=== PATIENT | female | born 1930 | race Caucasian/White ===

== ENCOUNTER 2016-11-29 03:57 | Inpatient (IN) | payer OTHER ==
[~2016-11-29] VITALS: Ht 160 cm; Wt 79.0 kg
[~2016-11-29 03:57] MED LIST: ASPI325T39 PO; CLC100X PO; CODEINE PO; LEVO75TA PO; MULT-188 PO; TYLENOL PO; TYLER650 PO; VITA10004 PO
[2016-11-29 05:12] LABS: BASO % 0.1 %; BASO ABS # 0.01 K/uL (0-0.2); COMPLETE YES; HEMATOCRIT 36.6 % (37-47); IG% 0.4 %; LYMPH % 4.8 %; LYMPH ABS # 0.58 K/uL (1.2-3.4); MEAN CELL VOLUME 97.3 fL (80-100); MEAN CORPUSCULAR HGB CONC 33.9 g/dl (32-36); MEAN PLATELET VOLUME 8.8 fL (7.4-10.4); MONO % 7.6 %; NEUT % 87.1 %; PLATELET COUNT 236 K/uL (130-400); RED BLOOD COUNT 3.76 M/uL (4.2-5.4); WHITE BLOOD COUNT 12.03 K/uL (4.8-10.8)
[2016-11-29 05:35] LABS: BUN/CREATININE RATIO 27.7 (10-20); CALCIUM 9.4 mg/dl (8.5-10.1); CREATININE 1.1 mg/dl (0.60-1.20); MAGNESIUM 2.4 mg/dl (1.8-2.4); POTASSIUM 3.9 mmol/L (3.5-5.1)
[2016-11-29 06:16] LABS: URINE APPEARANCE CLEAR (CLEAR); URINE BILIRUBIN NEG (NEG); URINE COLOR DK YELLOW; URINE NITRITE NEG (NEG); URINE SPECIFIC GRAVITY 1.026 (1.000-1.030); UROBILINOGEN NEG (NEG); ZZURINE CULT IF INDIC CATH YES
[2016-11-29 06:17] LABS: MANUAL MICROSCOPIC REQUIRED? NO; REVIEW REQ? YES
[2016-11-29] MEDS ORDERED: CEFTRIAXONE SOD INJ 1 GM ADDVIAL IV STA (06:37)
--- NOTE | 2016-11-29 07:45 | DIAGNOSTIC IMAGING REPORT ---
PELVIS 1 OR 2 VIEW ROUTINE CLINICAL HISTORY: Fall. COMPARISON STUDY: No previous studies for comparison. FINDINGS: Irregularity of the symphysis pubis is likely chronic. No acute fracture is identified within the pelvis or hips. This extensive vascular calcification. 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 IMPRESSION: 1. No acute fracture within the pelvis or hips. 2. Irregularity along the symphysis pubis. This is likely chronic. Electronically signed by: Xander Miles M.D. 11/29/2016 7:44 AM
--- NOTE | 2016-11-29 08:01 | DIAGNOSTIC IMAGING REPORT ---
LEFT KNEE 1 OR 2 VIEWS ROUTINE CLINICAL HISTORY: Bilateral knee pain s/p fall COMPARISON: Left knee radiographs August 28, 2014 FINDINGS: Alignment of the total left knee arthroplasty is anatomic. The hardware is intact. There is no fracture or joint effusion. There is extensive vascular calcification. IMPRESSION: Status post total left knee arthroplasty. No fracture. Hardware intact. Electronically signed by: Xander Milse M.D. 11/29/2016 7:59 AM
--- NOTE | 2016-11-29 08:02 | DIAGNOSTIC IMAGING REPORT ---
RIGHT KNEE 1 OR 2 VIEWS ROUTINE CLINICAL HISTORY: Bilateral knee pain following fall. COMPARISON: Right knee radiographs August 28, 2014. FINDINGS: Alignment of the total right knee arthroplasty is anatomic. The hardware is intact. There is no fracture or joint effusion. Several soft tissue calcifications and vascular calcification are noted. IMPRESSION: Status post total right knee arthroplasty. No fracture. No joint effusion. Electronically signed by: Xander Miles M.D. 11/29/2016 8:00 AM
--- NOTE | 2016-11-29 08:07 | DIAGNOSTIC IMAGING REPORT ---
CHEST ONE VIEW PORTABLE CLINICAL HISTORY: Fall. Weakness. COMPARISON STUDY: Chest radiograph January 27, 2015. FINDINGS: There is a possible anterior right shoulder dislocation. A large hiatal hernia is noted. Cardiomediastinal silhouette is stable. Apparent right lower lung opacity is unchanged and likely reflects normal vessels. There is no pneumothorax or pleural effusion. There is no lobar consolidation. IMPRESSION: 1. Possible anterior right shoulder dislocation. While this could be positional, a dislocation could appear similar. Right shoulder radiographs including a scapular Y view could be obtained as indicated. 2. Large hiatal hernia. Electronically signed by: Xander Miles M.D. 11/29/2016 8:05 AM
--- NOTE | 2016-11-29 08:08 | DIAGNOSTIC IMAGING REPORT ---
CT OF THE HEAD WITHOUT CONTRAST CLINICAL HISTORY: Fall. Weakness. COMPARISON STUDY: Head CT January 28, 2015. CT DOSE: 638.56 mGycm TECHNIQUE: Helical axial images of the head were obtained without IV contrast. Automated exposure control was utilized for the study. FINDINGS: No acute intracranial hemorrhage, midline shift or mass effect is present. Ventricular system is stable. The basilar cisterns are patent. There are no extra-axial collections. 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 Moderate small vessel disease is noted. There are no findings to suggest acute dural sinus thrombosis or acute territorial infarct. No calvarial fracture is identified. IMPRESSION: No acute intracranial findings. Electronically signed by: Xander Miles M.D. 11/29/2016 8:07 AM
[2016-11-29] MEDS ORDERED: ONDANSETRON INJ 2 MG/ML 2 ML VIAL IV PRN (08:15)
[2016-11-29] MEDS ORDERED: ACETAMINOPHEN 325 MG TAB PO PRN (08:15)
[2016-11-29] MEDS ORDERED: DOCUSATE SODIUM 100 MG CAP PO PRN (08:15)
--- NOTE | 2016-11-29 08:21 | EMERGENCY ROOM VISIT NOTE ---
History Report prepared by Gilbertoibami: Attila Funez Under the Supervision of: Dr. Pedro Schultz M.D. First contact with patient: 04:00 Chief Complaint: FALL Stated Complaint: FALL History of Present Illness The patient is an 86 year old female who presents to the Emergency Room with complaints of an acute fall that occurred within the past hour. The patient fell onto her knees when she went up to go to the bathroom. The patient denies knee pain or hip pain. She did not hit her head. The patient also denies any headaches or recent confusion. As per EMS, the patient is at baseline. The patient lives at home with her . The patient was not on the floor for an extended period of time after the fall. Source of History: patient, EMS Onset: past hour Position: other (global) Quality: other (fall) Timing: other (acute) Associated Symptoms: No headache Note: Denies knee pain or hip pain. Review of Systems See HPI for pertinent positives & negatives. A total of 10 systems reviewed and were otherwise negative. Past Medical & Surgical Medical Problems: (1) Localized, primary osteoarthritis of the lower leg Family History No pertinent family history Social History Smoking Status: Never Smoker Marital Status: Housing Status: lives with significant other Occupation Status: retired Current/Historical Medications Scheduled Acetaminophen (Tylenol Arthitis Ext Rel), 650 MG PO HS Aspirin (Aspirin Ec), 325 MG PO DAILY Levothyroxine Sodium (Synthroid), 75 MCG PO DAILY Multiple Vitamins W/ Minerals (Ocuvite), 1 TAB PO QAM Vitamin E (Vitamin E), 1,000 UNITS PO QAM Scheduled PRN Docusate Sodium (Colace), 200 MG PO HS PRN for Constipation Allergies Coded Allergies: No Known Allergies (Verified , 11/29/16) Physical Exam Vital Signs Date Time Temp Pulse Resp B/P Pulse Ox O2 Delivery O2 Flow Rate FiO2 11/29/16 07:11 68 15 111/76 96 11/29/16 06:00 76 20 118/69 97 Room Air 11/29/16 04:11 36.6 86 20 138/77 94 Room Air Physical Exam GENERAL: Patient is elderly appearing and in no acute distress. HEENT: No acute trauma, normocephalic atraumatic, mucous membranes moist, no nasal congestion, no scleral icterus. NECK: No stridor, no adenopathy, no meningismus, trachea is midline. LUNGS: No dyspnea. Clear to auscultation and equal bilaterally. No wheeze, no rhonchi. HEART: Regular rate and rhythm. No murmurs, rubs, gallops appreciated. ABDOMEN: Soft, nontender, bowel sounds positive, no masses appreciated, no peritonitis. BACK: No midline tenderness, no CVA tenderness EXTREMITIES: Normal motion all extremities other than right shoulder appears anteriorly dislocated (patient states this is chronic), no cyanosis, no edema. Bilateral knee contusions with mild tenderness to palpation. NEUROLOGIC: Slightly confused, alert and oriented, although there is some difficulty answering questions. Generalized weakness. SKIN: No rash, no jaundice, no diaphoresis. Significant amount of yeast throughout her lower pannus. Medical Decision & Procedures ER Provider Diagnostic Interpretation: X ray results and stated below per my interpretation. Other radiology results and stated below per my review and radiologist interpretation: Chest X-ray: Right mid lung mass, similar to previous chest X-ray. Bilateral Two View Knees: s/p knee replacement, no fracture or dislocation. Pelvis One View: Degenerative changes, no fracture no dislocation. CT Head: No evidence of acute infarct, hemorrhage, mass or edema. Chronic small vessel ischemic disease and senescent changes. Remote lacunar infarcts within the basal ganglia. Minimal mucosal thickening within the paranasal sinuses. No acute osseous abnormality. Radiologist: Hong Holliday MD. Laboratory Results 11/29/16 04:55 Red Blood Count 3.76, Mean Corpuscular Volume 97.3, Mean Corpuscular Hemoglobin 33.0, Mean Corpuscular Hemoglobin Concent 33.9, Mean Platelet Volume 8.8, Neutrophils (%) (Auto) 87.1, Lymphocytes (%) (Auto) 4.8, Monocytes (%) (Auto) 7.6, Eosinophils (%) (Auto) 0.0, Basophils (%) (Auto) 0.1, Neutrophils # (Auto) 10.47, Lymphocytes # (Auto) 0.58, Monocytes # (Auto) 0.92, Eosinophils # (Auto) 0.00, Basophils # (Auto) 0.01 11/29/16 04:55 Test 11/29/16 04:55 11/29/16 06:00 White Blood Count 12.03 K/uL (4.8-10.8) Red Blood Count 3.76 M/uL (4.2-5.4) Hemoglobin 12.4 g/dL (12.0-16.0) Hematocrit 36.6 % (37-47) Mean Corpuscular Volume 97.3 fL (80-100) Mean Corpuscular Hemoglobin 33.0 pg (25-34) Mean Corpuscular Hemoglobin Concent 33.9 g/dl (32-36) Platelet Count 236 K/uL (130-400) Mean Platelet Volume 8.8 fL (7.4-10.4) Neutrophils (%) (Auto) 87.1 % Lymphocytes (%) (Auto) 4.8 % Monocytes (%) (Auto) 7.6 % Eosinophils (%) (Auto) 0.0 % Basophils (%) (Auto) 0.1 % Neutrophils # (Auto) 10.47 K/uL (1.4-6.5) Lymphocytes # (Auto) 0.58 K/uL (1.2-3.4) Monocytes # (Auto) 0.92 K/uL (0.11-0.59) Eosinophils # (Auto) 0.00 K/uL (0-0.5) Basophils # (Auto) 0.01 K/uL (0-0.2) RDW Standard Deviation 48.9 fL (36.4-46.3) RDW Coefficient of Variation 13.8 % (11.5-14.5) Immature Granulocyte % (Auto) 0.4 % Immature Granulocyte # (Auto) 0.05 K/uL (0.00-0.02) Anion Gap 14.0 mmol/L (3-11) Est Creatinine Clear Calc Drug Dose 37.9 ml/min Estimated GFR () 53.4 Estimated GFR (Non- 46.1 BUN/Creatinine Ratio 27.7 (10-20) Calcium Level 9.4 mg/dl (8.5-10.1) Magnesium Level 2.4 mg/dl (1.8-2.4) Urine Color DK YELLOW Urine Appearance CLEAR (CLEAR) Urine pH 5.0 (4.5-7.5) Urine Specific [place] 1.026 (1.000-1.030) Urine Protein 1+ (NEG) Urine Glucose (UA) NEG (NEG) Urine Ketones TRACE (NEG) Urine Occult Blood 1+ (NEG) Urine Nitrite NEG (NEG) Urine Bilirubin NEG (NEG) Urine Urobilinogen NEG (NEG) Urine Leukocyte Esterase NEG (NEG) Urine WBC (Auto) 1-5 /hpf (0-5) Urine RBC (Auto) 0-4 /hpf (0-4) Urine Hyaline Casts (Auto) 1-5 /lpf (0-5) Urine Epithelial Cells (Auto) 10-20 /lpf (0-5) Urine Bacteria (Auto) 3+ (NEG) Laboratory results as reviewed by me. Medications Administered Medications (Trade) Dose Ordered Sig/Carleen Route Start Time Stop Time Status Last Admin Dose Admin Ceftriaxone Sodium (Rocephin Inj) 1 gm NOW STAT IV 11/29/16 06:37 11/29/16 06:38 DC 11/29/16 07:10 1 GM ED Course 0401: The patient was evaluated in room B5. A complete history and physical exam was performed. 0435: Spoke with the patient's daughter. She says the patient as been experiencing gradually worsening weakness. They will not take her home because they believe she is too weak. They would like for her to be admitted and eventually go to rehab. 0637: Rocephin 1 gm IV. 0640: The patient is okay with staying in the hospitalist. 0730: The patient will be evaluated by the [facility] Hospitalist Service. Medical Decision Differential: Sepsis, Infectious (UTI/Pneumonia/Meningitis/etc), Metabolic/ Electrolyte Abnormality, Cardiac, Hepatic, Endocrine, Toxicologic, Neurologic, amongst other pathologies entertained. 86 yr old female who lives at home with 90+ yr old . She has been having worsening weakness and after falling on ground while headed to bathroom is unable to get back up. Family arrived and made it clear that she can not come home due to this weakness. On work-up not much other than some trace bacteria in urine which given this is straight cath seems reasonable to treat with abx. Also with candidal infection of pannus as well. She does have evidence of right shoulder dislocation by exam and cxr but patient makes very clear this has been like this for 2-3 yrs and that it doesn't hurt her. While it's unclear if this is due to patient baseline confusion or if this actually has been ongoing for several years, will defer further work-up to hospitalist team and ortho consult as she is very poor candidate for sedation in ED as it is , especially given that she has no pain currently. Impression Primary Impression: Generalized weakness Additional Impressions: Ambulatory dysfunction, UTI (urinary tract infection) Scribe Attestation The scribe's documentation has been prepared under my direction and personally reviewed by me in its entirety. I confirm that the note above accurately reflects all work, treatment, procedures, and medical decision making performed by me. Departure Information Dispostion Being Evaluated By Hospitalist Referrals Ryan Chavira M.D. (PCP) Patient Instructions A Signature Page, My [facility]
[2016-11-29 08:30] VITALS: O2SAT 95; Ht 160 cm; Wt 79.0 kg
--- NOTE | 2016-11-29 08:34 | History and Physical ---
History & Physical Date & Time of Service: Nov 29, 2016 at 08:18 Chief Complaint: FALL Primary Care Physician: Ryan Chavira M.D. History of Present Illness Source: patient, hospital records, other (ed physician) This patient is a pleasant 86-year-old female that presented to the emergency department last night complaining of a fall and weakness. The patient got out of bed to use the restroom when she says that she "just fell." She denies any dizziness or lightheadedness. She denies any chest pain, pressure, shortness breath or heart palpitations. Patient doesn't recall tripping over anything. She landed on both of her knees. The right knee is bothering her more than the left. She has a history of bilateral knee replacements. She denies hitting her head. The patient has no other complaints. She reports eating and drinking normally over the last several days. She lives at home alone with her elderly . She currently does have family in the area. Her daughter brought her to the emergency department last night, and says that they were unable to take her home because she is so weak. The patient did reportedly have a similar episode and needed acute rehabilitation approximately 1 year ago. Past Medical/Surgical History Medical Problems: (1) Localized, primary osteoarthritis of the lower leg Status: Chronic Hypothyroidism Status post cholecystectomy, appendectomy, hysterectomy, bilateral knee replacements Family History No pertinent family history Unknown as the patient is fairly demented Social History Smoking Status: Never Smoker Alcohol Use: none Marital Status: Housing status: lives with significant other Occupational Status: retired Immunizations History of Influenza Vaccine: No History of Tetanus Vaccine?: Yes History of Pneumococcal: Yes History of Hepatitis B Vaccine: No Multi-Drug Resistant Organisms History of MDRO: No Allergies Coded Allergies: No Known Allergies (Verified , 11/29/16) Home Medications Scheduled Acetaminophen (Tylenol Arthitis Ext Rel), 650 MG PO HS Aspirin (Aspirin Ec), 325 MG PO DAILY Levothyroxine Sodium (Synthroid), 75 MCG PO DAILY Multiple Vitamins W/ Minerals (Ocuvite), 1 TAB PO QAM Vitamin E (Vitamin E), 1,000 UNITS PO QAM Scheduled PRN Docusate Sodium (Colace), 200 MG PO HS PRN for Constipation Review of Systems 10 system review performed and negative unless noted in HPI or below Physical Exam Vital Signs Date Time Temp Pulse Resp B/P Pulse Ox O2 Delivery O2 Flow Rate FiO2 11/29/16 07:11 68 15 111/76 96 11/29/16 06:00 76 20 118/69 97 Room Air 11/29/16 04:11 36.6 86 20 138/77 94 Room Air General Appearance: no apparent distress Head: normocephalic Eyes: PERRL, EOMI ENT: + pertinent finding (oral mucosa dry) Neck: no JVD Respiratory/Chest: lungs clear Cardiovascular: regular rate, rhythm Abdomen/GI: normal bowel sounds, non tender, soft, + pertinent finding ( significant erythema, warmth and tenderness noted in the skin folds of the pannus. Foul odor noted.) Extremities/Musculoskelatal: + pertinent finding (erythema and tenderness noted over the right knee. Mild pain with flexion and extension of the knee.) Neurologic/Psych: alert (alert and oriented 1. No other focal motor deficits noted.) Skin: + pertinent finding (rashes noted above.) Diagnostics Laboratory Results Results Past 24 Hours Test 11/29/16 04:55 11/29/16 06:00 Range/Units White Blood Count 12.03 4.8-10.8 K/uL Red Blood Count 3.76 4.2-5.4 M/uL Hemoglobin 12.4 12.0-16.0 g/dL Hematocrit 36.6 37-47 % Mean Corpuscular Volume 97.3 80-100 fL Mean Corpuscular Hemoglobin 33.0 25-34 pg Mean Corpuscular Hemoglobin Concent 33.9 32-36 g/dl Platelet Count 236 130-400 K/uL Mean Platelet Volume 8.8 7.4-10.4 fL Neutrophils (%) (Auto) 87.1 % Lymphocytes (%) (Auto) 4.8 % Monocytes (%) (Auto) 7.6 % Eosinophils (%) (Auto) 0.0 % Basophils (%) (Auto) 0.1 % Neutrophils # (Auto) 10.47 1.4-6.5 K/uL Lymphocytes # (Auto) 0.58 1.2-3.4 K/uL Monocytes # (Auto) 0.92 0.11-0.59 K/uL Eosinophils # (Auto) 0.00 0-0.5 K/uL Basophils # (Auto) 0.01 0-0.2 K/uL RDW Standard Deviation 48.9 36.4-46.3 fL RDW Coefficient of Variation 13.8 11.5-14.5 % Immature Granulocyte % (Auto) 0.4 % Immature Granulocyte # (Auto) 0.05 0.00-0.02 K/uL Sodium Level 144 136-145 mmol/L Potassium Level 3.9 3.5-5.1 mmol/L Chloride Level 107 98-107 mmol/L Carbon Dioxide Level 23 21-32 mmol/L Anion Gap 14.0 3-11 mmol/L Blood Urea Nitrogen 30 7-18 mg/dl Creatinine 1.10 0.60-1.20 mg/dl Est Creatinine Clear Calc Drug Dose 37.9 ml/min Estimated GFR () 53.4 Estimated GFR (Non- 46.1 BUN/Creatinine Ratio 27.7 10-20 Random Glucose 119 70-99 mg/dl Calcium Level 9.4 8.5-10.1 mg/dl Magnesium Level 2.4 1.8-2.4 mg/dl Urine Color DK YELLOW Urine Appearance CLEAR CLEAR Urine pH 5.0 4.5-7.5 Urine Specific [place] 1.026 1.000-1.030 Urine Protein 1+ NEG Urine Glucose (UA) NEG NEG Urine Ketones TRACE NEG Urine Occult Blood 1+ NEG Urine Nitrite NEG NEG Urine Bilirubin NEG NEG Urine Urobilinogen NEG NEG Urine Leukocyte Esterase NEG NEG Urine WBC (Auto) 1-5 0-5 /hpf Urine RBC (Auto) 0-4 0-4 /hpf Urine Hyaline Casts (Auto) 1-5 0-5 /lpf Urine Epithelial Cells (Auto) 10-20 0-5 /lpf Urine Bacteria (Auto) 3+ NEG Microbiology Results 11/29/16 Urine Culture, Received Pending Impression Assessment and Plan 86-year-old female presents emergency department with a reported mechanical fall , right knee pain. This does not sound like a syncopal episode. The patient does appear fairly dry on exam. -Observe on medical floor -PT/OT consults -Discharge planning-patient will likely need at least acute rehabilitation if not consideration of a SNF -check EKG -NS + 20 mEq KCl @ 75 cc/hr Maria Del Rosario dermatitis -Nystatin ointment top TID Hypothyroidism -Check TSH -Continue Synthroid 75 g daily Leukocytosis-could be reactive from the fall. Urine does not appear to be infected -Continue Rocephin 1 g IV daily for now -Follow urine culture -Follow CBC DVT prophylaxis -Lovenox 40 mg subQ daily -TEDS, SCDs CODE STATUS -LEVEL I FULL CODE Level of Care Med/Surg Resuscitation Status FULL RESUSCITATION VTE Prophylaxis VTE Risk Assessment Done? Y/N: Yes Risk Level: Low Given or contraindicated: Enoxaparin (Lovenox)SQ, T.E.D. Stockings, SCD's Reviewed: Pt Seen/Exam by Me, RN Notes, HO Notes, Prior Records, Labs, RAD, EKG History I agree with PA H&P with some modifications as below 86-year-old female presents emergency department with a reported mechanical fall , right knee pain. This does not sound like a syncopal episode. The patient does appear fairly dry on exam. Constitutional: denies: chills Respiratory: negative: cough Cardiovascular: denies chest pain Genitourinary: negative discharge Musculoskeletal: negative: back pain Neurological/Psych: negative: anxiety Hematologic/Lymphatic: negative: anemia General Appearance: WD/WN, no apparent distress Eye Exam: bilateral eye PERRL, bilateral eye normal inspection Neck: full range of motion, normal inspection Respiratory: chest non-tender, no respiratory distress Cardiovascular: normal peripheral pulses, no gallop Gastrointestinal: non tender, soft Extremities: non-tender, normal inspection Neurologic/Psychiatric: alert, normal mood/affect Skin Characteristics: normal color Assessment/Plan 86-year-old female presents emergency department with a reported mechanical fall , right knee pain. This does not sound like a syncopal episode. The patient does appear fairly dry on exam. s/p fall in the setting of dehydration cont medical floor PT/OT consults cont NS + 20 mEq KCl @ 75 cc/hr Maria Del Rosario dermatitis cont Nystatin ointment top TID Hypothyroidism Check TSH Continue Synthroid 75 g daily Leukocytosis-could be reactive from the fall. Urine does not appear to be infected Continue Rocephin 1 g IV daily for now check urine culture results DVT prophylaxis Lovenox 40 mg subQ daily CODE STATUS FULL CODE Discharge planning-patient will likely need at least acute rehabilitation if not consideration of a SNF case discussed with SAMANTHA Hernandez time spent 45 min
[2016-11-29 10:31] VITALS: BP 98/62; PULSE 62; TEMP 36.7; O2SAT 95
[2016-11-29] MEDS: NYSTATIN OINT 15 GM TUBE EXT SCH ×3 (11:00→20:31)
[2016-11-29] MEDS: SODIUM CHLOR 0.45% + 20MEQ KCL 1,000 ML IV SCH (11:00)
[2016-11-29 11:10] LABS: INR 1.1 (0.9-1.1); PROTHROMBIN TIME (PATIENT) 11.3 SECONDS (9.0-12.0)
[2016-11-29] MEDS ORDERED: IV FLUIDS COMPLETED PRN (11:15)
[2016-11-29] MEDS: ENOXAPARIN 40 MG/0.4 ML SYR SQ SCH (14:05)
--- NOTE | 2016-11-29 14:08 | DIAGNOSTIC IMAGING REPORT ---
RIGHT SHOULDER 1 VIEW CLINICAL HISTORY: Right shoulder pain. Trauma. COMPARISON: None. DISCUSSION: A single view of the right shoulder is provided for interpretation. There are suspected anterior subluxation of the right shoulder. The examination is limited from a positioning standpoint. IMPRESSION: Technically limited study with suspected anterior subluxation of the right shoulder Electronically signed by: Hamlet Cain M.D. 11/29/2016 2:06 PM
[2016-11-29 15:39] VITALS: BP 91/58; PULSE 67; TEMP 37.1; O2SAT 97
[2016-11-29 16:00] VITALS: O2SAT 97
--- NOTE | 2016-11-29 16:45 | Anesthesiology Progress Note ---
Anesthesia Progress Note Date of Service Nov 29, 2016. Progress Notes Pt is scheduled for R shoulder surgery on 11/30/16. Pt is an 86F h/o hypothyroidism, hiatal hernia, obesity. She presented with a mechanical fall 2/ 2 weakness. Pt was incidentally found to have a R shoulder dislocation. Pt is an acceptable candidate for MAC vs. GA +/- R interscalene block. Consent was obtained from the pt's daughter/POA. All questions and concerns were addressed.
--- NOTE | 2016-11-29 17:08 | DIAGNOSTIC IMAGING REPORT ---
RIGHT SHOULDER MIN 2 VIEWS ROUTINE CLINICAL HISTORY: Dislocated Right Shoulder Right dislocation COMPARISON: Single shoulder view earlier same date DISCUSSION: Persistent anterior subluxation right humeral head. Grade 1 separation right acromioclavicular joint. Mild Hill-Sachs deformity. There is no evidence for soft tissue swelling. IMPRESSION: Slightly improved but nevertheless persistently anterior subluxed humeral head in relation to the glenoid. Grade 1 separation right acromioclavicular joint. Hill-Sachs deformity posterior lateral aspect humeral head Electronically signed by: Galdino Pierre M.D. 11/29/2016 5:06 PM
--- NOTE | 2016-11-29 19:16 | ORTHOPEDIC CONSULTATION ---
DATE OF CONSULTATION: 11/29/2016 HISTORY OF PRESENT ILLNESS: The patient is an 86-year-old female who presented to the ER yesterday complaining of fall and weakness. She denied loss of consciousness. She was admitted on medical service. She did land on both of her knees and she was having more right knee pain at that time and apparently attention was not initially taken to her shoulder, but upon review of her chest x-ray, it was noted that her right shoulder was dislocated. PAST MEDICAL HISTORY: Hypothyroidism, status post prior knee replacements, hysterectomy, appendectomy, cholecystectomy. FAMILY HISTORY: Not obtainable. SOCIAL HISTORY: Nonsmoker. , lives with significant other. Retired. ALLERGIES: None known. MEDICATIONS: On admission were acetaminophen, aspirin, levothyroxine, multiple vitamins. PHYSICAL EXAMINATION: Demonstrates that her right shoulder, she cannot raise it rightward side or rotate it. She has a blocked external rotation to 0 degrees of external rotation only and painful range of motion. She does have some swelling about the shoulder. There is defect posteriorly and a fullness anteriorly, consistent with anterior dislocation of the shoulder. Her left shoulder, she only has 70 degrees of abduction and forward elevation. She cannot raise her arm fully overhead. She has external rotation to 90 degrees and some pain with range of motion of the left shoulder. On questioning her thoroughly, she said her right shoulder has always been more painful than her left but she could use her right arm better than her left before this accident. Chest x-ray reviewed demonstrated anterior dislocation, so it will be verified by scapular Y view. Shoulder x-rays reviewed demonstrate that she has an acromial spur. She has greater tuberosity bone spur, likely related to chronic rotator cuff disease. She has an inferior humeral osteophyte which would be also related to chronic rotator cuff arthropathy and she has an anterior dislocation of the shoulder but does not have a fracture. ASSESSMENT: Chronic rotator cuff arthropathy, tendinopathy with chronic rotator cuff tear, now with acute dislocation status post the fall. PLAN: I think it would be reasonable to proceed with a closed reduction under anesthesia. I think that her osteoporosis and osteopenia would put her at risk for trying to do this at the bedside and she should have a full anesthetic and have some muscle relaxation to reduce her shoulder and assess stability under anesthesia. The patient is currently not fasting, so this will be set up for procedure tomorrow and Dr. Perales will need to proceed with this.
[2016-11-30] VITALS (8 sets, daily range): BP systolic 102–138; BP diastolic 63–83; PULSE 66–89; TEMP 36.7–37.4; O2SAT 93–97
[2016-11-30] MEDS: SODIUM CHLOR 0.45% + 20MEQ KCL 1,000 ML IV SCH (00:13)
[2016-11-30] MEDS: LEVOTHYROXINE 75 MCG TAB PO SCH (05:35)
[2016-11-30 07:00] LABS: BASO % 0.1 %; BASO ABS # 0.01 K/uL (0-0.2); COMPLETE YES; EOS % 0.1 %; IG% 0.3 %; LYMPH % 13.6 %; LYMPH ABS # 1.08 K/uL (1.2-3.4); MEAN CELL VOLUME 97.6 fL (80-100); MEAN CORPUSCULAR HEMOGLOBIN 32.3 pg (25-34); MEAN CORPUSCULAR HGB CONC 33.1 g/dl (32-36); MEAN PLATELET VOLUME 8.8 fL (7.4-10.4); MONO % 9.2 %; NEUT % 76.7 %; PLATELET COUNT 179 K/uL (130-400); RED BLOOD COUNT 3.28 M/uL (4.2-5.4); WHITE BLOOD COUNT 7.97 K/uL (4.8-10.8)
[2016-11-30 07:33] LABS: BUN/CREATININE RATIO 37.5 (10-20); CALCIUM 8.4 mg/dl (8.5-10.1); CREATININE 0.75 mg/dl (0.60-1.20); POTASSIUM 3.8 mmol/L (3.5-5.1)
[2016-11-30] MEDS: NYSTATIN OINT 15 GM TUBE EXT SCH ×3 (07:44→20:01)
[2016-11-30] MEDS: CEFTRIAXONE SOD INJ 1,000 MG in DEXTROSE 5% 50ML 50 ML IV SCH (07:44)
[2016-11-30] MEDS: ASPIRIN 325 MG ECTAB PO SCH (07:44)
[2016-11-30] MEDS: CEROVITE ADV FORMULA TAB PO SCH (07:44)
[2016-11-30] MEDS ORDERED: MIDAZOLAM HCL 1 MG/ML 2ML VIAL ONE (09:23)
[2016-11-30] MEDS ORDERED: FENTANYL CITRATE INJ 50 MCG/1 ML 2 ML VIAL ONE (09:23)
--- NOTE | 2016-11-30 09:35 | History & Physical Bridge Note ---
H&P Re-Evaluation Bridge Note: I have examined the patient, reviewed the History & Physical and in the interval since the performance of the History & Physical I have noted the following changes of clinical significance: No changes noted
[2016-11-30] MEDS ORDERED: ATROPINE SULFATE 0.1 MG/ML 5ML SYR IV PRN (09:45)
[2016-11-30] MEDS ORDERED: ONDANSETRON INJ 2 MG/ML 2 ML VIAL IV PRN (09:45)
[2016-11-30] MEDS ORDERED: FENTANYL CITRATE INJ 50 MCG/1 ML 2 ML VIAL IV PRN (09:45)
[2016-11-30] MEDS ORDERED: EpHEDrine SULFATE INJ 50 MG/ML AMP IV PRN (09:45)
--- NOTE | 2016-11-30 09:57 | [facility] Post Operative Brief Note ---
Immediate Operative Summary Operative Date Nov 30, 2016. Pre-Operative Diagnosis Right dislocated shoulder Post-Operative Diagnosis Same as preoperative Procedure(s) Performed Right Shoulder Closed Reduction Surgeon Dr. Perales Tactical Deception Plans Officer Surgeon(s) Juan Pablo Le PA-C Estimated Blood Loss 0ml Findings as above Specimens NONE Complication(s) None Disposition Recovery Room / PACU
[2016-11-30] MEDS ORDERED: PROPOFOL IV EMULSION 10 MG/ML 20 ML VIAL IV ONE (10:01)
[2016-11-30] MEDS ORDERED: LIDOCAINE HCL 2% 2 ML VIAL (20MG/ML) ONE (10:01)
[2016-11-30] MEDS ORDERED: SUCCINYLCHOLINE 100MG/5ML SYR IV ONE (10:01)
--- NOTE | 2016-11-30 10:05 | OPERATIVE REPORT ---
DATE OF OPERATION: 11/30/2016 PREOPERATIVE DIAGNOSIS: Dislocation, right shoulder. POSTOPERATIVE DIAGNOSIS: Dislocation, right shoulder. PROCEDURE: Closed reduction right shoulder. SURGEON: Dr. Perales. HABILITATIVE INTERVENTIONIST: Juan Pablo Le PA-C. ANESTHESIA: General. COMPLICATIONS: None. DESCRIPTION OF PROCEDURE: Following induction with induction of adequate general mask anesthesia using traction countertraction technique, a closed reduction of the right shoulder was performed. AP and Y view confirmed concentric reduction of the shoulder. The patient was placed in a sling, awakened and taken to recovery in stable and good condition. She tolerated the procedure well. I attest to the content of the Intraoperative Record and any orders documented therein. Any exceptio ns are noted below.
--- NOTE | 2016-11-30 10:34 | DIAGNOSTIC IMAGING REPORT ---
Right shoulder RIGHT SHOULDER MIN 2 VIEW ROUTINE CLINICAL HISTORY: RIGHT C/R SHOULDER Right dislocation TECHNIQUE: Image intensifier COMPARISON STUDY: None FINDINGS: Anatomic alignment status post closed reduction IMPRESSION: Anatomic alignment status post closed reduction Electronically signed by: Galdino Pierre M.D. 11/30/2016 10:32 AM
--- NOTE | 2016-11-30 10:42 | Anesthesiology Progress Note ---
Anesthesia Post Op Note Date & Time Nov 30, 2016 at 10:42 Vital Signs Pain Intensity: 0 Vital Signs Past 12 Hours Date Time Temp Pulse Resp B/P Pulse Ox O2 Delivery O2 Flow Rate FiO2 11/30/16 10:31 79 21 91 11/30/16 10:31 81 21 11/30/16 10:29 138/84 11/30/16 10:26 78 23 100 11/30/16 10:26 79 23 11/30/16 10:24 147/90 11/30/16 10:21 82 22 11/30/16 10:21 22 11/30/16 10:19 147/90 11/30/16 10:16 26 11/30/16 10:16 85 26 11/30/16 10:14 146/83 11/30/16 10:11 81 26 92 11/30/16 10:11 79 26 11/30/16 10:11 37.3 85 18 143/87 95 Mask 10 11/30/16 09:10 37.0 74 20 116/80 95 Room Air 11/30/16 08:00 Room Air 11/30/16 07:37 36.8 77 18 112/70 93 Room Air 11/30/16 00:46 36.7 66 18 102/63 97 Room Air 11/30/16 00:25 Room Air Notes Mental Status: alert / awake / arousable, participated in evaluation Pt Amnestic to Procedure: Yes Nausea / Vomiting: adequately controlled Pain: adequately controlled Airway Patency, RR, SpO2: stable & adequate BP & HR: stable & adequate Hydration State: stable & adequate Anesthetic Complications: no major complications apparent
--- NOTE | 2016-11-30 12:10 | Hospitalist Progress Note ---
Hospitalist Progress Note Date of Service Nov 30, 2016. (Genesis Hernandez PA-C) 11/30/16 agree with PA note (Munir Herron MD) Subjective Pt evaluation today including: conversation w/ patient, physical exam, chart review, lab review, review of studies, conversation w/ knowledge management consultant, review of inpatient medication list Patient has no complaints this morning. Denies any significant pain in the right shoulder. Denies any knee pain. No dysuria or hematuria. No fever or chills. Breathing without difficulty. No chest pain. Additional Comments: 6 system review performed and negative unless noted in HPI or below (Genesis Hernandez PA-C) Pt evaluation today including: conversation w/ patient, conversation w/ family (at bedside), physical exam, chart review, review of studies, review of inpatient medication list ROS is limited due to patient condition Constitutional: No fever Respiratory: No cough Abdomen: No pain (Munir Herron MD) Objective Vital Signs Date Time Temp Pulse Resp B/P Pulse Ox O2 Delivery O2 Flow Rate FiO2 11/30/16 11:39 36.8 83 18 138/68 95 Nasal Cannula 2.0 11/30/16 11:14 36.8 78 19 122/77 93 Nasal Cannula 2.0 11/30/16 10:50 159/85 11/30/16 10:49 137/85 11/30/16 10:47 79 24 97 11/30/16 10:47 80 24 11/30/16 10:43 144/93 11/30/16 10:42 79 24 11/30/16 10:42 77 24 97 11/30/16 10:39 141/85 11/30/16 10:37 79 25 11/30/16 10:37 81 25 96 11/30/16 10:37 37.3 81 21 141/85 95 Nasal Cannula 2 11/30/16 10:34 141/90 11/30/16 10:32 81 23 90 11/30/16 10:32 79 23 11/30/16 10:31 79 21 91 11/30/16 10:31 81 21 11/30/16 10:29 138/84 11/30/16 10:26 78 23 100 11/30/16 10:26 79 23 11/30/16 10:24 147/90 11/30/16 10:21 82 22 11/30/16 10:21 22 11/30/16 10:19 147/90 11/30/16 10:16 26 11/30/16 10:16 85 26 11/30/16 10:14 146/83 11/30/16 10:11 81 26 92 11/30/16 10:11 79 26 11/30/16 10:11 37.3 85 18 143/87 95 Mask 10 11/30/16 09:10 37.0 74 20 116/80 95 Room Air 11/30/16 08:00 Room Air 11/30/16 07:37 36.8 77 18 112/70 93 Room Air 11/30/16 00:46 36.7 66 18 102/63 97 Room Air 11/30/16 00:25 Room Air 11/29/16 16:00 97 Room Air 11/29/16 15:39 37.1 67 18 91/58 97 Room Air (Genesis Hernandez, PA-C) Physical Exam General Appearance: no apparent distress Eyes: EOMI Neck: no JVD Respiratory/Chest: lungs clear Cardiovascular: regular rate, rhythm Abdomen: normal bowel sounds, non tender, soft Extremities: no pedal edema, + pertinent finding (sensation still intact over the right deltoid and right hand. Good manager dental strength bilaterally.) Neurologic/Psychiatric: alert (alert and oriented to person only.) Skin: warm/dry (Genesis Hernandez, PA-C) General Appearance: WD/WN, no apparent distress Eyes: normal inspection ENT: hearing grossly normal, pharynx normal Neck: no adenopathy, no JVD Respiratory/Chest: normal breath sounds Cardiovascular: no edema Abdomen: normal bowel sounds, soft Extremities: + pertinent finding (right shoulder in sling) Neurologic/Psychiatric: alert (Munir Herron MD) Laboratory Results 11/30/16 06:42 Red Blood Count 3.28, Mean Corpuscular Volume 97.6, Mean Corpuscular Hemoglobin 32.3, Mean Corpuscular Hemoglobin Concent 33.1, Mean Platelet Volume 8.8, Neutrophils (%) (Auto) 76.7, Lymphocytes (%) (Auto) 13.6, Monocytes (%) (Auto) 9.2, Eosinophils (%) (Auto) 0.1, Basophils (%) (Auto) 0.1, Neutrophils # (Auto) 6.12, Lymphocytes # (Auto) 1.08, Monocytes # (Auto) 0.73, Eosinophils # (Auto) 0.01, Basophils # (Auto) 0.01 11/30/16 06:42 Test 11/30/16 06:42 White Blood Count 7.97 K/uL (4.8-10.8) Red Blood Count 3.28 M/uL (4.2-5.4) Hemoglobin 10.6 g/dL (12.0-16.0) Hematocrit 32.0 % (37-47) Mean Corpuscular Volume 97.6 fL (80-100) Mean Corpuscular Hemoglobin 32.3 pg (25-34) Mean Corpuscular Hemoglobin Concent 33.1 g/dl (32-36) Platelet Count 179 K/uL (130-400) Mean Platelet Volume 8.8 fL (7.4-10.4) Neutrophils (%) (Auto) 76.7 % Lymphocytes (%) (Auto) 13.6 % Monocytes (%) (Auto) 9.2 % Eosinophils (%) (Auto) 0.1 % Basophils (%) (Auto) 0.1 % Neutrophils # (Auto) 6.12 K/uL (1.4-6.5) Lymphocytes # (Auto) 1.08 K/uL (1.2-3.4) Monocytes # (Auto) 0.73 K/uL (0.11-0.59) Eosinophils # (Auto) 0.01 K/uL (0-0.5) Basophils # (Auto) 0.01 K/uL (0-0.2) RDW Standard Deviation 48.9 fL (36.4-46.3) RDW Coefficient of Variation 13.7 % (11.5-14.5) Immature Granulocyte % (Auto) 0.3 % Immature Granulocyte # (Auto) 0.02 K/uL (0.00-0.02) Anion Gap 10.0 mmol/L (3-11) Est Creatinine Clear Calc Drug Dose 55.6 ml/min Estimated GFR () 84.8 Estimated GFR (Non- 73.2 BUN/Creatinine Ratio 37.5 (10-20) Calcium Level 8.4 mg/dl (8.5-10.1) Last 24 Hours Test 11/30/16 06:42 White Blood Count 7.97 K/uL Red Blood Count 3.28 M/uL Hemoglobin 10.6 g/dL Hematocrit 32.0 % Mean Corpuscular Volume 97.6 fL Mean Corpuscular Hemoglobin 32.3 pg Mean Corpuscular Hemoglobin Concent 33.1 g/dl Platelet Count 179 K/uL Mean Platelet Volume 8.8 fL Neutrophils (%) (Auto) 76.7 % Lymphocytes (%) (Auto) 13.6 % Monocytes (%) (Auto) 9.2 % Eosinophils (%) (Auto) 0.1 % Basophils (%) (Auto) 0.1 % Neutrophils # (Auto) 6.12 K/uL Lymphocytes # (Auto) 1.08 K/uL Monocytes # (Auto) 0.73 K/uL Eosinophils # (Auto) 0.01 K/uL Basophils # (Auto) 0.01 K/uL RDW Standard Deviation 48.9 fL RDW Coefficient of Variation 13.7 % Immature Granulocyte % (Auto) 0.3 % Immature Granulocyte # (Auto) 0.02 K/uL Sodium Level 141 mmol/L Potassium Level 3.8 mmol/L Chloride Level 108 mmol/L Carbon Dioxide Level 23 mmol/L Anion Gap 10.0 mmol/L Blood Urea Nitrogen 28 mg/dl Creatinine 0.75 mg/dl Est Creatinine Clear Calc Drug Dose 55.6 ml/min Estimated GFR () 84.8 Estimated GFR (Non- 73.2 BUN/Creatinine Ratio 37.5 Random Glucose 103 mg/dl Calcium Level 8.4 mg/dl (Genesis Hernandez PA-C) Diagnostic Results RIGHT SHOULDER 1 VIEW CLINICAL HISTORY: Right shoulder pain. Trauma. COMPARISON: None. DISCUSSION: A single view of the right shoulder is provided for interpretation. There are suspected anterior subluxation of the right shoulder. The examination is limited from a positioning standpoint. IMPRESSION: Technically limited study with suspected anterior subluxation of the right shoulder (Genesis Hernandez PA-C) Assessment and Plan 86-year-old female presents emergency department with a reported mechanical fall , right knee pain. This does not sound like a syncopal episode. -PT/OT consults -Discharge planning-patient will likely need acute rehabilitation as the patient usually ambulates with a walker and she will be in a sling for 2 weeks due to her shoulder -D/C IVF Right anterior shoulder dislocation -Plan for reduction today in the OR -Immobilization with sling for 2 weeks Maria Del Rosario dermatitis -Nystatin ointment top TID Hypothyroidism -Continue Synthroid 75 g daily Leukocytosis-resolved -Continue Rocephin 1 g IV for now until urine culture is back DVT prophylaxis -Lovenox 40 mg subQ daily -TEDS, SCDs CODE STATUS -LEVEL I FULL CODE (Genesis Hernandez, PADilipC) 86-year-old female presents emergency department with a reported mechanical fall , right knee pain. This does not sound like a syncopal episode. Right anterior shoulder dislocation s/p reduction today in the OR today cont sling for 2 weeks PT/OT consults Discharge planning-patient will likely need acute rehabilitation as the patient usually ambulates with a walker and she will be in a sling for 2 weeks due to her shoulder Maria Del Rosario dermatitis Nystatin ointment top TID Hypothyroidism Continue Synthroid 75 g daily Leukocytosis-resolved Continue Rocephin 1 g IV for now until urine culture is back DVT prophylaxis Lovenox 40 mg subQ daily CODE STATUS FULL CODE (Munir Herron MD)
[2016-11-30] MEDS: ENOXAPARIN 40 MG/0.4 ML SYR SQ SCH (13:27)
[2016-12-01 00:35] VITALS: BP 142/81; PULSE 74; TEMP 37.2; O2SAT 92
[2016-12-01 04:00] VITALS: BP 107/66; PULSE 78; TEMP 37.1; O2SAT 96
[2016-12-01] MEDS: LEVOTHYROXINE 75 MCG TAB PO SCH (05:47)
[2016-12-01 06:54] LABS: BASO % 0.1 %; BASO ABS # 0.01 K/uL (0-0.2); COMPLETE YES; HEMATOCRIT 32.3 % (37-47); IG% 0.3 %; LYMPH ABS # 0.94 K/uL (1.2-3.4); MEAN CELL VOLUME 96.4 fL (80-100); MEAN CORPUSCULAR HEMOGLOBIN 31.9 pg (25-34); MEAN CORPUSCULAR HGB CONC 33.1 g/dl (32-36); MEAN PLATELET VOLUME 9.2 fL (7.4-10.4); NEUT % 76.6 %; PLATELET COUNT 171 K/uL (130-400); RED BLOOD COUNT 3.35 M/uL (4.2-5.4); WHITE BLOOD COUNT 7.83 K/uL (4.8-10.8)
[2016-12-01 07:28] LABS: BUN/CREATININE RATIO 27.8 (10-20); CALCIUM 8.7 mg/dl (8.5-10.1); CREATININE 0.73 mg/dl (0.60-1.20); POTASSIUM 3.6 mmol/L (3.5-5.1)
--- NOTE | 2016-12-01 07:46 | Orthopedic Progress Note ---
Orthopedic Progress Note Date of Service Dec 01, 2016. Subjective Post OP Day: 1 Reports: complaints (mild right shoulder pain), feeling well Objective CMS intact sling on RUE. Previous shoulder swelling noted. Date Time Temp Pulse Resp B/P Pulse Ox O2 Delivery O2 Flow Rate FiO2 12/01/16 04:00 37.1 78 20 107/66 96 Room Air 12/01/16 00:35 37.2 74 20 142/81 92 Room Air 12/01/16 00:00 Room Air 11/30/16 20:00 94 Room Air 11/30/16 16:10 37.1 89 18 129/83 94 Room Air 11/30/16 16:00 Room Air 11/30/16 13:11 37.4 84 18 123/79 93 Room Air 11/30/16 12:08 36.9 88 18 135/81 93 Room Air 11/30/16 11:39 36.8 83 18 138/68 95 Nasal Cannula 2.0 11/30/16 11:14 36.8 78 19 122/77 93 Nasal Cannula 2.0 11/30/16 10:50 159/85 11/30/16 10:49 137/85 11/30/16 10:47 79 24 97 11/30/16 10:47 80 24 11/30/16 10:43 144/93 11/30/16 10:42 79 24 11/30/16 10:42 77 24 97 11/30/16 10:39 141/85 11/30/16 10:37 79 25 11/30/16 10:37 81 25 96 11/30/16 10:37 37.3 81 21 141/85 95 Nasal Cannula 2 11/30/16 10:34 141/90 11/30/16 10:32 81 23 90 11/30/16 10:32 79 23 11/30/16 10:31 79 21 91 11/30/16 10:31 81 21 11/30/16 10:29 138/84 11/30/16 10:26 78 23 100 11/30/16 10:26 79 23 11/30/16 10:24 147/90 11/30/16 10:21 82 22 11/30/16 10:21 22 11/30/16 10:19 147/90 11/30/16 10:16 26 11/30/16 10:16 85 26 11/30/16 10:14 146/83 11/30/16 10:11 81 26 92 11/30/16 10:11 79 26 11/30/16 10:11 37.3 85 18 143/87 95 Mask 10 11/30/16 09:10 37.0 74 20 116/80 95 Room Air 11/30/16 08:00 Room Air Laboratory Results 24 Hours: Test 12/01/16 05:57 White Blood Count 7.83 K/uL Red Blood Count 3.35 M/uL Hemoglobin 10.7 g/dL Hematocrit 32.3 % Mean Corpuscular Volume 96.4 fL Mean Corpuscular Hemoglobin 31.9 pg Mean Corpuscular Hemoglobin Concent 33.1 g/dl Platelet Count 171 K/uL Mean Platelet Volume 9.2 fL Neutrophils (%) (Auto) 76.6 % Lymphocytes (%) (Auto) 12.0 % Monocytes (%) (Auto) 11.0 % Eosinophils (%) (Auto) 0.0 % Basophils (%) (Auto) 0.1 % Neutrophils # (Auto) 6.00 K/uL Lymphocytes # (Auto) 0.94 K/uL Monocytes # (Auto) 0.86 K/uL Eosinophils # (Auto) 0.00 K/uL Basophils # (Auto) 0.01 K/uL Assessment & Plan Assessment: POD 1 s/p C/R Right Shoulder Dislocation Plan: Continue sling at all times for 2 weeks. May remove for bathing and getting dressed but no ROM of the shoulder at this time No PT Minimal Weight Bearing on shoulder until seen back in office. Follow up with Dr Perales in 2 weeks.
[2016-12-01] MEDS: ASPIRIN 325 MG ECTAB PO SCH (07:51)
[2016-12-01] MEDS: NYSTATIN OINT 15 GM TUBE EXT SCH ×3 (07:51→20:00)
[2016-12-01] MEDS: CEFTRIAXONE SOD INJ 1,000 MG in DEXTROSE 5% 50ML 50 ML IV SCH (07:51)
[2016-12-01] MEDS: CEROVITE ADV FORMULA TAB PO SCH (07:51)
[2016-12-01 08:15] VITALS: BP 117/73; PULSE 74; TEMP 37.3; O2SAT 95
[2016-12-01] MEDS ORDERED: POTASSIUM CHLORIDE 20 MEQ/15 ML UDC PO ONE (09:00)
--- NOTE | 2016-12-01 11:14 | DIAGNOSTIC IMAGING REPORT ---
RIGHT SHOULDER 1 VIEW CLINICAL HISTORY: Recurrent dislocation COMPARISON: 11/29/2016 DISCUSSION: No acute fractures are visualized. There is no definite dislocation however is difficult to accurately assess the relationship on this view. An axillary view is recommended in follow-up. There is interstitial thickening within the visualized portions of the lung. There is a probable hiatal hernia. IMPRESSION: No acute fracture. No definite dislocation. An axillary view is recommended in follow-up for better assessment of the glenohumeral relationship. Electronically signed by: Hamlet Cain M.D. 12/01/2016 11:13 AM Dictated Date/Time: 12/01/2016 11:10 AM
[2016-12-01 12:16] VITALS: BP 117/73; PULSE 74; TEMP 37.3; O2SAT 95
--- NOTE | 2016-12-01 14:09 | DIAGNOSTIC IMAGING REPORT ---
RIGHT SHOULDER 1 VIEW CLINICAL HISTORY: axillary view to r/o repeat dislocation Right. Right shoulder pain. COMPARISON STUDY: Right shoulder 12/01/2016. FINDINGS: Single axillary view demonstrates anterior dislocation of the humeral head in relation to the glenoid. No acute fractures. Degenerative changes are again noted at the glenohumeral joint. IMPRESSION: Right anterior shoulder dislocation. No fractures. Electronically signed by: Jabier Coates M.D. 12/01/2016 2:07 PM Dictated Date/Time: 12/01/2016 2:05 PM
[2016-12-01] MEDS: ENOXAPARIN 40 MG/0.4 ML SYR SQ SCH (14:26)
--- NOTE | 2016-12-01 15:07 | Hospitalist Progress Note ---
Hospitalist Progress Note Date of Service Dec 01, 2016. (Genesis Hernandez PA-C) Subjective Pt evaluation today including: conversation w/ patient, physical exam, chart review, lab review, review of studies, conversation w/ child development consultant, review of inpatient medication list Patient has minimal complaints this morning. She complains of mild shoulder pain. No numbness or tingling. Denies chest pain or shortness of breath. No fevers. No heart palpitations. No problems urinating or moving her bowels. Additional Comments: 6 system review negative. Please see pertinent positives in the history of present illness section. (Genesis Hernandez PA-C) Objective Vital Signs Date Time Temp Pulse Resp B/P Pulse Ox O2 Delivery O2 Flow Rate FiO2 12/01/16 12:16 37.3 74 18 95 Room Air 12/01/16 08:15 37.3 74 18 117/73 95 Room Air 12/01/16 08:00 Room Air 12/01/16 04:00 37.1 78 20 107/66 96 Room Air 12/01/16 00:35 37.2 74 20 142/81 92 Room Air 12/01/16 00:00 Room Air 11/30/16 20:00 94 Room Air 11/30/16 16:10 37.1 89 18 129/83 94 Room Air 11/30/16 16:00 Room Air (Genesis Hernandez PA-C) Physical Exam General Appearance: no apparent distress Neck: no JVD Respiratory/Chest: lungs clear Cardiovascular: regular rate, rhythm Abdomen: normal bowel sounds, non tender, soft Extremities: no calf tenderness, + pertinent finding (some swelling noted to the right shoulder) Neurologic/Psychiatric: alert (alert and oriented 1. Answering questions appropriately.) Skin: warm/dry (Genesis Hernandez PA-C) Laboratory Results Last 24 Hours Test 12/01/16 05:57 White Blood Count 7.83 K/uL Red Blood Count 3.35 M/uL Hemoglobin 10.7 g/dL Hematocrit 32.3 % Mean Corpuscular Volume 96.4 fL Mean Corpuscular Hemoglobin 31.9 pg Mean Corpuscular Hemoglobin Concent 33.1 g/dl Platelet Count 171 K/uL Mean Platelet Volume 9.2 fL Neutrophils (%) (Auto) 76.6 % Lymphocytes (%) (Auto) 12.0 % Monocytes (%) (Auto) 11.0 % Eosinophils (%) (Auto) 0.0 % Basophils (%) (Auto) 0.1 % Neutrophils # (Auto) 6.00 K/uL Lymphocytes # (Auto) 0.94 K/uL Monocytes # (Auto) 0.86 K/uL Eosinophils # (Auto) 0.00 K/uL Basophils # (Auto) 0.01 K/uL RDW Standard Deviation 48.6 fL RDW Coefficient of Variation 13.7 % Immature Granulocyte % (Auto) 0.3 % Immature Granulocyte # (Auto) 0.02 K/uL Sodium Level 140 mmol/L Potassium Level 3.6 mmol/L Chloride Level 106 mmol/L Carbon Dioxide Level 24 mmol/L Anion Gap 10.0 mmol/L Blood Urea Nitrogen 20 mg/dl Creatinine 0.73 mg/dl Est Creatinine Clear Calc Drug Dose 57.1 ml/min Estimated GFR () 87.7 Estimated GFR (Non- 75.6 BUN/Creatinine Ratio 27.8 Random Glucose 97 mg/dl Calcium Level 8.7 mg/dl (Genesis Hernandez PA-C) Diagnostic Results Patient: VAUGHN ROBERTS Address1: [address] [place] [address] Med Rec: [id number] Address2: Acct ID: [id number] [facility] Zip: [place] [address] Date: 1930 Sex: F Room/Bed: [facility] Ref Phy: Ryan Chavira M.D. SC: [id number] Att Phy: Lety Hutchinson DO Report #: [id number] Yaneth Phy: Ryan Chavira M.D. Test: SHD-1 Admit Phy: Munir Herron MD Flight Superintendent: LILLY Interpreting Phy: Jabier Coates MD Diagnosis: WEAKNESS Ordering Phy: Shaq Kang PAC Service Date: 12/01/16 Admit Date: 11/29/1700/05/17 MNE: [id number] CONF: DICTATED BY: Jabier Coates M.D.]] CC: Shaq Kang P.A. Pecht, Karl M.D. Stevens, Jessica A., DO Endcc: [~ rep ct add3]] RIGHT SHOULDER 1 VIEW CLINICAL HISTORY: axillary view to r/o repeat dislocation Right. Right shoulder pain. COMPARISON STUDY: Right shoulder 12/01/2016. FINDINGS: Single axillary view demonstrates anterior dislocation of the humeral head in relation to the glenoid. No acute fractures. Degenerative changes are again noted at the glenohumeral joint. IMPRESSION: Right anterior shoulder dislocation. No fractures. Electronically signed by: Jabier Coates M.D. 12/01/2016 2:07 PM Dictated Date/Time: 12/01/2016 2:05 PM The status of this report is Signed. Draft = Not yet reviewed or approved by Radiologist. Signed = Reviewed and approved by Radiologist. <AttendingPhy>Lety Hutchinson DO</AttendingPhy> <FamilyPhy>Ryan Chavira M.D.< /FamilyPhy> <PrimaryPhy>Ryan Chavira M.D.</PrimaryPhy> <UnitNumber>[id number]</ UnitNumber> <VisitNumber>[id number]</VisitNumber> <PatientName>ALEJANDRAVAUGHN</ PatientName> <DateOfBirth>1930</DateOfBirth> <Location>[facility]</Location> < ServiceDate>11/29/16</ServiceDate> <MNE>ESINDI</MNE> <OrderingPhy>Shaq Kang E PAC</OrderingPhy> <OrderingPhyMNE>f rep ord dr schultz</OrderingPhyMNE> < DictatingPhyMNE>f rep dict dr schultz</DictatingPhyMNE> <CCListMNE>f rep ct mne</ CCListMNE> <AdmittingPhyMNE>f pt admit dr schultz</AdmittingPhyMNE> <AttendingPhyMNE >f pt attend dr schultz</AttendingPhyMNE> <ConsultingPhyMNE>f pt consult dr schultz</ConsultingPhyMNE> <FamilyPhyMNE>f pt fam dr schultz</FamilyPhyMNE> <OtherPhyMNE>f pt other dr schultz</OtherPhyMNE> < PrimaryPhyMNE>f pt prim care dr schultz</PrimaryPhyMNE> <ReferringPhyMNE>f pt referring dr schultz</ReferringPhyMNE> (Genesis Hernandez, PA-C) Assessment and Plan 86-year-old female presents emergency department with a reported mechanical fall , right knee pain. This does not sound like a syncopal episode. -PT/OT evals done -given IVF Subsequent Right anterior shoulder dislocation-according to the patient, this injury may be at least 3 years old -Status post closed reduction in the OR 12/01 -Secondary to swelling, repeat films were ordered today. It is consistent with an anterior shoulder dislocation. They were able to reduce it yesterday. Apparently, it popped out afterwards. -Discussed with orthopedics. They will try to reduce this one more time in the OR tomorrow. -NPO after midnight -Continue sling Maria Del Rosario dermatitis -Nystatin ointment top TID Hypothyroidism -Continue Synthroid 75 g daily UTI-lactobacillus, E. coli-sens pending -Continue Rocephin 1 g IV DVT prophylaxis -Lovenox 40 mg subQ daily -TEDS, SCDs CODE STATUS -LEVEL I FULL CODE DISPO -PLAN IS FOR [facility] (Genesis Hernandez, PADilipC) Reviewed: Pt Seen/Exam by Me (Lety Hutchinson, ) History Pt is doing well. Reports minimal pain related to her R shoulder. No SOB, CP. Eating well. Agree with HPI/ROS as noted. (Lety Hutchinson, DO) General Appearance: WD/WN, no apparent distress Respiratory: normal breath sounds, no respiratory distress Cardiovascular: normal peripheral pulses, regular rate, rhythm Gastrointestinal: non tender, soft Extremities: non-tender, no pedal edema Neurologic/Psychiatric: alert, normal mood/affect Skin Characteristics: normal color, warm/dry (Lety Hutchinson, DO) Assessment/Plan Agree with plan as outlined above Pt's R shoulder has again displaced, concern from ortho that this may be a chronic condition Planning for return to OR tomorrow for correction, however if it occurs again, will likely not pursue another given minimal pain with this Planning for [facility] when able. (Lety Hutchinson, DO)
[2016-12-01 16:20] VITALS: BP 123/78; PULSE 83; TEMP 37.4; O2SAT 94
--- NOTE | 2016-12-01 17:55 | ORTHOPEDIC PROGRESS NOTE ---
DATE: 12/01/2016 SUBJECTIVE: After seeing the patient earlier this morning, I had discussed the case with Genesis Hernandez PA-C. We have both discussed the patient's continued swelling of her shoulder, although she had no increased pain in the shoulder other than some mild pain that she has been having. It was decided to get an AP film of her right shoulder which showed a question of dislocation and requesting an axillary view. This was ordered and ended up showing on the axillary view an anterior dislocation. The patient was still in her sling at this time and it remains so. OBJECTIVE: She is not having any increased pain at this time. Denies numbness and tingling into the fingers and CMS is intact. She has limited range of motion of the shoulder obviously at this time and complains of some discomfort when trying to move the shoulder. ASSESSMENT: Repeat dislocation, right shoulder. PLAN: I spoke to Dr. Robins who was on-call tonight and this weekend. We will set the patient up for tomorrow morning since she has already eaten lunch for a closed reduction and a [place] sling for the right shoulder and upper extremity. I have discussed this case with her daughter Hortensia and got verbal consent for the second closed reduction. I discussed the fact that this might be a chronic dislocation and may a happen again down the road. We will do our best to keep the sling on and keep the patient from trying to move the shoulder as best we can and if she is stable afterwards on Sunday, she could possibly go to [facility] for further care on Sunday or Sunday of this weekend. NESS
[2016-12-01 23:38] VITALS: BP 133/84; PULSE 79; TEMP 37.2; O2SAT 92
[2016-12-02] VITALS: O2SAT 92
[2016-12-02] MEDS: LEVOTHYROXINE 75 MCG TAB PO SCH (05:34)
[2016-12-02 07:00] LABS: BASO % 0.1 %; BASO ABS # 0.01 K/uL (0-0.2); COMPLETE YES; EOS % 0.4 %; HEMATOCRIT 30.1 % (37-47); IG% 0.4 %; LYMPH % 15.6 %; LYMPH ABS # 1.13 K/uL (1.2-3.4); MEAN CELL VOLUME 96.5 fL (80-100); MEAN CORPUSCULAR HEMOGLOBIN 32.1 pg (25-34); MEAN CORPUSCULAR HGB CONC 33.2 g/dl (32-36); MEAN PLATELET VOLUME 9.2 fL (7.4-10.4); MONO % 9.4 %; NEUT % 74.1 %; PLATELET COUNT 190 K/uL (130-400); RED BLOOD COUNT 3.12 M/uL (4.2-5.4); WHITE BLOOD COUNT 7.25 K/uL (4.8-10.8)
[2016-12-02 07:12] LABS: BUN/CREATININE RATIO 28.3 (10-20); CALCIUM 8.3 mg/dl (8.5-10.1); CREATININE 0.75 mg/dl (0.60-1.20); POTASSIUM 3.8 mmol/L (3.5-5.1)
[2016-12-02 07:22] VITALS: BP 114/68; PULSE 69; TEMP 37.1; O2SAT 96
[2016-12-02] MEDS ORDERED: ONDANSETRON INJ 2 MG/ML 2 ML VIAL ONE ×2 (07:28→07:30)
[2016-12-02] MEDS ORDERED: FENTANYL CITRATE INJ 50 MCG/1 ML 2 ML VIAL ONE (07:28)
[2016-12-02] MEDS ORDERED: PROPOFOL IV EMULSION 10 MG/ML 20 ML VIAL IV ONE (07:28)
[2016-12-02] MEDS ORDERED: MIDAZOLAM HCL 1 MG/ML 2ML VIAL ONE (07:28)
[2016-12-02] MEDS ORDERED: LIDOCAINE HCL 2% 2 ML VIAL (20MG/ML) ONE (07:28)
[2016-12-02] MEDS ORDERED: ATROPINE SULFATE 0.1 MG/ML 5ML SYR IV PRN (07:45)
[2016-12-02] MEDS ORDERED: FENTANYL CITRATE INJ 50 MCG/1 ML 2 ML VIAL IV PRN (07:45)
[2016-12-02] MEDS ORDERED: EpHEDrine SULFATE INJ 50 MG/ML AMP IV PRN (07:45)
--- NOTE | 2016-12-02 08:34 | [facility] Post Operative Brief Note ---
Immediate Operative Summary Operative Date Dec 02, 2016. Pre-Operative Diagnosis Repeat dislocation right shoulder Post-Operative Diagnosis Repeat dislocation right shoulder Procedure(s) Performed Right shoulder closed reduction Surgeon Dr. Robins Cigarette Lighter Repairer Surgeon(s) none Estimated Blood Loss 0cc Findings above Specimens none Drains 0 Anesthesia geta Complication(s) None Disposition Recovery Room / PACU
[2016-12-02] MEDS ORDERED: EpHEDrine SULFATE 50MG/5ML SYR ONE (08:41)
--- NOTE | 2016-12-02 08:58 | OPERATIVE REPORT ---
DATE OF OPERATION: 12/02/2016 PREOPERATIVE DIAGNOSIS: Right shoulder dislocation. POSTOPERATIVE DIAGNOSIS: Same. PROCEDURE: Closed reduction right shoulder. SURGEON: Dr. Robins. ORACLE ANALYST: None. ANESTHESIA: General endotracheal anesthesia. SPECIMEN: None. COMPLICATION: None. ESTIMATED BLOOD LOSS: None. INDICATIONS: The patient is an 86-year-old female who reports several years of pain and dysfunction in the right shoulder. She was admitted for other medical issues. On chest x-ray, she was noted to have a right shoulder dislocation. She underwent a closed reduction by one of my partners on , had good reduction of the shoulder on fluoroscopy. She was rounded on the following day and appearance of the shoulder was concerning. Repeat x-ray was obtained and the shoulder had once again dislocated. She had eaten that day, so we elected to proceed with closed reduction in the operating room the following morning, which is today. Risks, benefits and alternatives to the procedure were discussed with the patient and her power of managing attorney which is her daughter, and she wished to proceed. DESCRIPTION OF PROCEDURE: The patient was identified, laterality was confirmed and marked. She was transferred to the operating room, placed in supine position, induced under general endotracheal anesthesia per the anesthesia staff. Once she was anesthetized, I examined the shoulder. I was actually able to bring her through a relatively normal range of motion once she was anesthetized, she had a little bit of limitation in forward flexion to about 160 degrees, but she had normal abduction, external and internal rotation. She had crepitus with range of motion of the shoulder. We brought in fluoroscopy on AP, the shoulder appeared to be located on the scapular Y, it was questionable. We then brought in for an axillary x-ray and the shoulder sat anteriorly dislocated. I applied some gentle posterior directed force and the shoulder reduced quite easily. I then released the force and the shoulder wanted to again sublux and dislocate anteriorly. On the axillary, there is a question that there appears to be some wear of the anterior glenoid. Given this and the ease with which it reduces and again dislocates, my suspicion is this has been chronically dislocated and she has worn anterior glenoid and will continue to have chronic instability in this shoulder. We placed a shoulder immobilizer on her and got new fluoroscopic views. Shoulder is located on both the AP as well as on the scapular Y with the shoulder immobilizer in place. She is transferred to the PACU in stable condition without apparent complication. I spoke to the patient's power of managing attorney which is her daughter about her situation. 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 The shoulder easily reduces as well as easily dislocates with removal of manual pressure. We discussed various treatment options with her POA including continued nonoperative management. This would include sling comfort for now but she will likely re-dislocate the shoulder once the immobilizer is removed. She would likely then have continued pain and dysfunction in the shoulder, but she would be able to use it for some ADLs but not likely be able to use the shoulder much for any reaching-type activities. This would then not expose her to any surgical risk. The other option would be for a reverse total shoulder arthroplasty with a constrained liner to keep the shoulder located and she would likely have improved function of the shoulder, but it would expose her to surgical risk for total joint replacement. The daughter's feeling and I agree with her is to treat her nonoperatively for now and see how she does. If she has worsening pain and dysfunction of the shoulder, we can revisit doing a reverse total shoulder, but for now, we will keep her in the immobilizer. I attest to the content of the Intraoperative Record and any orders documented therein. Any exceptio ns are noted below.
--- NOTE | 2016-12-02 09:03 | DIAGNOSTIC IMAGING REPORT ---
INTRAOPERATIVE FLUOROSCOPIC IMAGES OF THE RIGHT SHOULDER CLINICAL HISTORY: Right shoulder closed reduction. COMPARISON STUDY: Right shoulder radiograph December 01, 2016. Fluoroscopy time: 30 seconds FINDINGS: 4 fluoroscopic images were obtained. Initial image obtained at 8:09 AM shows anatomic alignment. The subsequent image shows anterior displacement. The final images show anatomic alignment. Sensitivity for fracture detection is diminished given fluoroscopic technique. IMPRESSION: Fluoroscopic images demonstrating reduction of the right shoulder dislocation. Electronically signed by: Xander Miles M.D. 12/02/2016 9:01 AM Dictated Date/Time: 12/02/2016 8:59 AM
--- NOTE | 2016-12-02 09:14 | Anesthesiology Progress Note ---
Anesthesia Post Op Note Date & Time Dec 02, 2016 at 09:13 Vital Signs Pain Intensity: 0 Vital Signs Past 12 Hours Date Time Temp Pulse Resp B/P Pulse Ox O2 Delivery O2 Flow Rate FiO2 12/02/16 09:05 57 16 100/56 99 Nasal Cannula 2 12/02/16 08:55 36.7 66 14 101/57 99 Nasal Cannula 2 12/02/16 08:45 66 19 101/59 100 Nasal Cannula 2 12/02/16 08:35 69 18 105/60 98 Mask 10 12/02/16 08:26 36.8 67 16 98/62 100 Mask 10 12/02/16 07:22 37.1 69 18 114/68 96 Room Air 12/02/16 00:00 92 Room Air 12/01/16 23:38 37.2 79 20 133/84 92 Room Air Notes Mental Status: alert / awake / arousable, participated in evaluation Pt Amnestic to Procedure: Yes Nausea / Vomiting: adequately controlled Pain: adequately controlled Airway Patency, RR, SpO2: stable & adequate BP & HR: stable & adequate Hydration State: stable & adequate Anesthetic Complications: no major complications apparent
[2016-12-02 09:22] VITALS: BP 135/78; PULSE 66; TEMP 36.7; O2SAT 98
[2016-12-02] MEDS: ASPIRIN 325 MG ECTAB PO SCH (09:43)
[2016-12-02] MEDS: CEROVITE ADV FORMULA TAB PO SCH (09:44)
[2016-12-02] MEDS: CEFTRIAXONE SOD INJ 1,000 MG in DEXTROSE 5% 50ML 50 ML IV SCH (09:44)
[2016-12-02] MEDS: NYSTATIN OINT 15 GM TUBE EXT SCH ×3 (09:44→22:06)
[2016-12-02 10:40] VITALS: BP 107/69; PULSE 80; O2SAT 96
--- NOTE | 2016-12-02 10:46 | Discharge Instructions ---
Discharge Instructions Admission Reason for Admission: Weakness Discharge Discharge Diagnosis / Problem: Urinary Tract Infection Discharge Goals Goal(s): Decrease discomfort, Improve function, Increase independence Activity Recommendations Activity Level: Assistance Required Therapies: Physical Therapy, Occupational Therapy Lifting Limitations: gradually increase as tolerated Exercise/Sports Limitations: gradually increase as tolerated Shower/Bathe: no limitations . Additional Information Patient informed of condition: Yes Advance Directives: No DNR: No Level of Care: Acute Rehab Communicable Disease: No Prognosis: Improving Gonzalez Catheter: No Instructions / Follow-Up Instructions / Follow-Up Mechanical Fall with R Knee Pain: - XR Pelvis/Knees without evidence of acute fracture - Head CT without evidence of acute intracranial processes R Anterior Shoulder Dislocation - APPEARS CHRONIC - S/P Closed Reduction on 12/01/16 and 12/02/16 due to continued dislocation - it appears that this will continue to happen as a more involved surgery would be necessary and family would like to defer that at this time. Patient largely asymptomatic Maria Del Rosario Dermatitis: - Nystatin ointment top TID Hypothyroidism: - Synthroid 75 mcg daily Osteoarthritis: - Will continue home medications of ASA and Tylenol for pain UTI- Lactobacillus and E. Coli - Pansensitive - Treated with Rocephin 1 g IV x 3 days - TODAY 12/02/16 IS DAY #3 TOTAL ANTIBIOTICS - Start Ciprofloxacin 250 mg BID x 7 days with first dose given on 12/03/16 Current Hospital Diet Patient's current hospital diet: Regular Diet Discharge Diet Recommended Diet: Regular Diet Diet Texture: Mechanical Soft (ground) Procedures Procedures Performed: Right shoulder closed reduction Pending Studies Studies pending at discharge: no Medical Emergencies . Who to Call and When: Medical Emergencies: If at any time you feel your situation is an emergency, please call 911 immediately. . Non-Emergent Contact Non-Emergency issues call your: Primary Care Provider . . "Provider Documentation" section prepared by Mona Escobedo. Core Measure Problem Core Measures: None
[2016-12-02] MEDS ORDERED: NYSO15 EXT (10:49)
[2016-12-02] MEDS ORDERED: CIPR1TAB11 PO (10:49)
--- NOTE | 2016-12-02 11:14 | Progress Note ---
Subjective Date of Service: Dec 02, 2016. (Mona Escobedo, XUANC) Subjective Pt evaluation today including: conversation w/ patient, physical exam, chart review, lab review, review of studies, review of inpatient medication list Patient seen and evaluated. S/P R shoulder reduction on 12/01 and now today . Appears chronic issue. Patient was in bed eating breakfast. Did struggle with dentures as eggs were in mouth and dentures not secured. Did remove dentures and had her spit out the eggs. She did cough a couple times but took a couple sips of water and coughing stopped. Placed dentures in her mouth and confirmed placement. She continued to eat without choking or coughing noted. Planned for [facility] transfer however awaiting bed. Verbalizes no complaints at this time. States should "isn't too bad" (Mona Escobedo, XUANC) Problem List Medical Problems: (1) Ambulatory dysfunction Status: Acute (2) Generalized weakness Status: Acute (3) UTI (urinary tract infection) Status: Acute (Mona Escoebdo, MERCEDES) Review of Systems 6 system review negative. Please see pertinent positives in the history of present illness section. (Mona Escobedo PA-C) Medications Current Inpatient Medications Medications (Trade) Dose Ordered Sig/Carleen Route Start Time Stop Time Status Last Admin Dose Admin Enoxaparin Sodium (Lovenox Inj) 40 mg DAILY@1400 SQ 11/29/16 14:00 12/29/16 13:59 12/01/16 14:26 40 MG Acetaminophen (Tylenol Tab) 650 mg Q4H PRN PO 11/29/16 08:15 12/29/16 08:14 Ondansetron HCl 4 mg 4 mg Q6H PRN IV 11/29/16 08:15 12/29/16 08:14 Ceftriaxone Sodium/Dextrose (Rocephin Inj/D5 50ml) 60 ml @ 100 mls/hr DAILY@0800 IV 11/30/16 08:00 12/04/16 07:59 12/02/16 09:44 100 MLS/HR Nystatin (Mycostatin Oint) 1 appln TID EXT 11/29/16 08:15 12/29/16 08:14 12/02/16 09:44 1 APPLN Aspirin (Ecotrin Tab) 325 mg DAILY PO 11/29/16 09:00 12/29/16 08:59 12/02/16 09:43 325 MG Docusate Sodium (coLACE CAP) 200 mg HS PRN PO 11/29/16 08:15 12/29/16 08:14 Levothyroxine Sodium (Synthroid Tab) 75 mcg DAILYBB PO 11/30/16 06:30 12/30/16 06:29 12/01/16 05:47 75 MCG Multivitamins/ Minerals (Multivitamin W/ Minerals Tab) 1 tab QAM PO 11/29/16 09:00 12/29/16 08:59 12/02/16 09:44 1 TAB Miscellaneous (Iv Fluids Completed) 1 ea PRN PRN N/A 11/29/16 11:15 11/29/17 11:14 Fentanyl Citrate (Fentanyl Inj) 25 mcg Q5M PRN IV 12/02/16 07:45 12/02/16 12:45 Ephedrine Sulfate (EpHEDrine SULFATE INJ) 5 mg Q5M PRN IV 12/02/16 07:45 12/02/16 12:45 Atropine Sulfate (Atropine Sulfate 0.1MG/Ml Inj) 0.5 mg Q1M PRN IV 12/02/16 07:45 12/02/16 12:45 (Mona Escobedo PA-C) Objective Vital Signs Date Time Temp Pulse Resp B/P Pulse Ox O2 Delivery O2 Flow Rate FiO2 12/02/16 10:40 80 18 107/69 96 Nasal Cannula 3.0 12/02/16 09:22 36.7 66 20 135/78 98 Nasal Cannula 2.0 12/02/16 09:05 57 16 100/56 99 Nasal Cannula 2 12/02/16 08:55 36.7 66 14 101/57 99 Nasal Cannula 2 12/02/16 08:45 66 19 101/59 100 Nasal Cannula 2 12/02/16 08:45 Nasal Cannula 2.0 12/02/16 08:35 69 18 105/60 98 Mask 10 12/02/16 08:26 36.8 67 16 98/62 100 Mask 10 12/02/16 07:22 37.1 69 18 114/68 96 Room Air 12/02/16 00:00 92 Room Air 12/01/16 23:38 37.2 79 20 133/84 92 Room Air 12/01/16 20:00 Room Air 12/01/16 16:20 37.4 83 18 123/78 94 Room Air 12/01/16 16:00 Room Air 12/01/16 12:16 37.3 74 18 95 Room Air (Mona Escobedo PA-C) Physical Exam General Appearance: WD/WN, no apparent distress Eyes: sclerae normal ENT: hearing grossly normal, + pertinent finding (upper and lower dentures) Neck: supple, no JVD, trachea midline Respiratory/Chest: lungs clear, normal breath sounds, no respiratory distress, no accessory muscle use Cardiovascular: regular rate, rhythm, no gallop, no murmur Abdomen: normal bowel sounds, non tender, soft Extremities: no pedal edema Neurologic/Psychiatric: alert Skin: normal color, warm/dry (Mona Escobedo PA-C) Laboratory Results Last 24 Hours Test 12/02/16 06:32 White Blood Count 7.25 K/uL Red Blood Count 3.12 M/uL Hemoglobin 10.0 g/dL Hematocrit 30.1 % Mean Corpuscular Volume 96.5 fL Mean Corpuscular Hemoglobin 32.1 pg Mean Corpuscular Hemoglobin Concent 33.2 g/dl Platelet Count 190 K/uL Mean Platelet Volume 9.2 fL Neutrophils (%) (Auto) 74.1 % Lymphocytes (%) (Auto) 15.6 % Monocytes (%) (Auto) 9.4 % Eosinophils (%) (Auto) 0.4 % Basophils (%) (Auto) 0.1 % Neutrophils # (Auto) 5.37 K/uL Lymphocytes # (Auto) 1.13 K/uL Monocytes # (Auto) 0.68 K/uL Eosinophils # (Auto) 0.03 K/uL Basophils # (Auto) 0.01 K/uL RDW Standard Deviation 47.8 fL RDW Coefficient of Variation 13.6 % Immature Granulocyte % (Auto) 0.4 % Immature Granulocyte # (Auto) 0.03 K/uL Sodium Level 137 mmol/L Potassium Level 3.8 mmol/L Chloride Level 104 mmol/L Carbon Dioxide Level 24 mmol/L Anion Gap 9.0 mmol/L Blood Urea Nitrogen 21 mg/dl Creatinine 0.75 mg/dl Est Creatinine Clear Calc Drug Dose 55.6 ml/min Estimated GFR () 84.8 Estimated GFR (Non- 73.2 BUN/Creatinine Ratio 28.3 Random Glucose 96 mg/dl Calcium Level 8.3 mg/dl (Mona Escobedo PA-C) Assessment and Plan 86-year-old female presents emergency department with a reported mechanical fall , right knee pain. This does not sound like a syncopal episode. -PT/OT evals done -given IVF Subsequent Right anterior shoulder dislocation-according to the patient, this injury may be at least 3 years old - Status post closed reduction in the OR 12/01 and 12/02 - appears a chronic condition and family wants to defer more extensive surgical intervention at this time - Orthopedics following - appreciate any further interventions Maria Del Rosario dermatitis -Nystatin ointment top TID Hypothyroidism - Synthroid 75 mcg daily UTI-lactobacillus, E. coli- pansensitive - D/C Rocephin 1 g IV - THREE DAY TOTAL ABX - Start Ciprofloxacin 250 mg BID x 7 more days on 12/03 DVT prophylaxis -Lovenox 40 mg subQ daily -TEDS, SCDs CODE STATUS -LEVEL I FULL CODE DISPO - Medically suitable for D/C to [facility] - unable to move today due to no bed available - Will await placement (Mona Escobedo PA-C) Reviewed: Pt Seen/Exam by Me (Lety Hutchinson, ) History Pt is doing well post-op, although she was a bit groggy when I saw her as she had just come up from the OR. Denies pain related to her shoulder, chest pain, SOB. Agree with HPI/ROS as noted. (Lety Hutchinson, ) General Appearance: WD/WN, no apparent distress Respiratory: normal breath sounds, no respiratory distress Cardiovascular: normal peripheral pulses, regular rate, rhythm Gastrointestinal: non tender, soft Extremities: non-tender, no pedal edema Neurologic/Psychiatric: alert, other (groggy) Skin Characteristics: normal color, warm/dry (Lety Hutchinson, ) Assessment/Plan Agree with plan as outlined above Pt s/p 2nd R shoulder surgery for repeat displacement, concern from ortho that this may be a chronic condition and was not related to recent fall Spoke with ortho PA and apparently it is felt that she likely needs a reverse total shoulder. Ortho discussed with family and they have declined at this time. UTI: Spear sensi, will transition to PO cipro today Pt able to d/c today to [facility], however no beds available until tomorrow (Lety Hutchinson, DO)
[2016-12-02] MEDS: ENOXAPARIN 40 MG/0.4 ML SYR SQ SCH (13:48)
[2016-12-02 15:05] VITALS: BP 100/65; PULSE 76; TEMP 36.7; O2SAT 96
[2016-12-03 00:05] VITALS: BP 124/70; PULSE 78; TEMP 36.8; O2SAT 94
[2016-12-03] MEDS: LEVOTHYROXINE 75 MCG TAB PO SCH (06:15)
[2016-12-03 07:03] VITALS: BP 118/75; PULSE 67; TEMP 36.8; O2SAT 94
[2016-12-03] MEDS ORDERED: INFLUENZA ADMINISTRATION CHARGE ONE (08:15)
[2016-12-03] MEDS ORDERED: INFLUENZA VIRUS QUAD VACCINE 0.5 ML SYR IM. ONE (08:15)
[2016-12-03] MEDS: CEROVITE ADV FORMULA TAB PO SCH (09:16)
[2016-12-03] MEDS: ASPIRIN 325 MG ECTAB PO SCH (09:16)
[2016-12-03] MEDS: CIPROFLOXACIN 250 MG TAB PO SCH ×2 (09:16→20:11)
[2016-12-03] MEDS: NYSTATIN OINT 15 GM TUBE EXT SCH ×3 (09:17→20:11)
--- NOTE | 2016-12-03 11:19 | Progress Note ---
Subjective Date of Service: Dec 03, 2016. Subjective Pt evaluation today including: conversation w/ patient, chart review, lab review Pt reports feeling well. She has no pain to her R shoulder. Ate well. Pt denies fever, SOB, chest pain, abd pain, n/v/c/d, LE pain or swelling. ROS as noted above, otherwise neg. Problem List Medical Problems: (1) Ambulatory dysfunction Status: Acute (2) Generalized weakness Status: Acute (3) UTI (urinary tract infection) Status: Acute Objective Vital Signs Date Time Temp Pulse Resp B/P Pulse Ox O2 Delivery O2 Flow Rate FiO2 12/03/16 08:00 Room Air 12/03/16 07:03 36.8 67 18 118/75 94 Room Air 12/03/16 00:05 36.8 78 20 124/70 94 Room Air 12/03/16 00:00 Room Air 12/02/16 20:00 Room Air 12/02/16 15:05 36.7 76 18 100/65 96 Room Air Physical Exam Comments: General Appearance: WD/WN, no apparent distress Respiratory: normal breath sounds, no respiratory distress Cardiovascular: normal peripheral pulses, regular rate, rhythm Gastrointestinal: non tender, soft Extremities: non-tender, no pedal edema Neurologic/Psychiatric: alert, answering all questions without issue, pleasant Skin Characteristics: normal color, warm/dry Assessment and Plan 86-year-old female presents emergency department with a reported mechanical fall , right knee pain. This does not sound like a syncopal episode. -PT/OT evals done -given IVF Subsequent Right anterior shoulder dislocation-according to the patient, this injury may be at least 3 years old - Status post closed reduction in the OR 12/01 and 12/02 - appears a chronic condition and family wants to defer more extensive surgical intervention at this time - Orthopedics following - appreciate any further interventions Maria Del Rosario dermatitis -Nystatin ointment top TID Hypothyroidism - Synthroid 75 mcg daily UTI-lactobacillus, E. coli- pansensitive - D/C Rocephin 1 g IV - THREE DAY TOTAL ABX - Start Ciprofloxacin 250 mg BID x 7 more days on 12/03 DVT prophylaxis -Lovenox 40 mg subQ daily -TEDS, SCDs CODE STATUS -LEVEL I FULL CODE DISPO - Medically suitable for D/C to [facility] however no beds available, possibly tomorrow - Will await placement
[2016-12-03 15:04] VITALS: BP 112/72; PULSE 72; TEMP 36.6; O2SAT 98
[2016-12-03] MEDS: ENOXAPARIN 40 MG/0.4 ML SYR SQ SCH (15:29)
[2016-12-04 00:20] VITALS: BP 116/76; PULSE 71; TEMP 36.9; O2SAT 92
[2016-12-04] MEDS: LEVOTHYROXINE 75 MCG TAB PO SCH (06:03)
[2016-12-04 07:31] VITALS: BP 129/80; PULSE 74; TEMP 36.6; O2SAT 96
--- NOTE | 2016-12-04 08:02 | Orthopedic Progress Note ---
Orthopedic Progress Note Date of Service Dec 04, 2016. Subjective Additional Notes: Pt awake and alert this AM. States that her right shoulder has been feeling a little better this AM. No other complaints. Objective CMS intact Sling in place. ROM of fingers/hand/elbow wnl. Shoulder ROM not done secondary to possibility of chronic dislocations. Date Time Temp Pulse Resp B/P Pulse Ox O2 Delivery O2 Flow Rate FiO2 12/04/16 07:31 36.6 74 18 129/80 96 Room Air 12/04/16 00:20 36.9 71 16 116/76 92 Room Air 12/03/16 20:00 Room Air 12/03/16 16:00 Room Air 12/03/16 15:04 36.6 72 18 112/72 98 Room Air 12/03/16 08:00 Room Air Assessment & Plan Assessment: s/p C/R Right Shoulder Dislocation x 2 Plan: Discussed case with Dr Robins. Patient was taken back to OR for repeat c/r of right shoulder dislocation. He has discussed the pt's case with her and her family. With the possibility of this being a chronic dislocation, plans will be to continue to treat her non operatively in a sling. Pt has been somewhat noncompliant with keeping her sling on at times and has been told that she needs to continue using the sling of which she agrees. Ortho will sign off for now. CONTINUE RUE ARM SLING FOR 2 WEEKS. NWB IF AT ALL POSSIBLE ON RUE. FOLLOW UP WITH DR ROBINS IN 2 WEEKS FOR RECHECK.
--- NOTE | 2016-12-04 08:09 | Anesthesiology Progress Note ---
Anesthesia Post Op Note Date & Time Dec 04, 2016 at 08:08 Vital Signs Pain Intensity: 0.0 Vital Signs Past 12 Hours Date Time Temp Pulse Resp B/P Pulse Ox O2 Delivery O2 Flow Rate FiO2 12/04/16 07:31 36.6 74 18 129/80 96 Room Air 12/04/16 00:20 36.9 71 16 116/76 92 Room Air Notes Mental Status: alert / awake / arousable, participated in evaluation Pt Amnestic to Procedure: Yes Nausea / Vomiting: adequately controlled Pain: adequately controlled Airway Patency, RR, SpO2: stable & adequate BP & HR: stable & adequate Hydration State: stable & adequate Anesthetic Complications: no major complications apparent
[2016-12-04] MEDS: CEROVITE ADV FORMULA TAB PO SCH (08:54)
[2016-12-04] MEDS: CIPROFLOXACIN 250 MG TAB PO SCH ×2 (08:54→22:28)
[2016-12-04] MEDS: ASPIRIN 325 MG ECTAB PO SCH (08:54)
[2016-12-04] MEDS: NYSTATIN OINT 15 GM TUBE EXT SCH ×3 (08:55→22:28)
[2016-12-04] MEDS ORDERED: CPR250 PO (09:50)
--- NOTE | 2016-12-04 10:48 | Discharge Summary ---
Discharge Summary Admission Date: Nov 30, 2016 at 09:32 Discharge Disposition: Rehab ([facility]) Principal Diagnosis: Weakness, mechanical fall Problems/Secondary Diagnoses: UTI, Hypothyroidism, Chronic R shoulder dislocation Immunizations: Have You Had Influenza Vaccine: No History of Tetanus Vaccine?: Yes History of Pneumococcal: Yes History of Hepatitis B Vaccine: No Procedures: Internal reduction of R shoulder Consultations: Orthopedics (Anika Villasenor PA-C) Medication Reconciliation New Medications: Ciprofloxacin Tab (Cipro) 250 Mg Tab 250 MG PO BID for 7 Days, TAB Start on 12/03/16 Ciprofloxacin (Ciprofloxacin HCl) 250 Mg Tab 250 MG PO Q12H for 5 Days, #10 TAB Nystatin (Nystatin) 45 Appln/15 Gm Oint 1 APPLN EXT TID for 7 Days Continued Medications: Acetaminophen (Tylenol Arthitis Ext Rel) 650 Mg Ertab 650 MG PO HS, CAP Aspirin (Aspirin Ec) 325 Mg Tab 325 MG PO DAILY Docusate Sodium (Colace) 100 Mg Cap 200 MG PO HS PRN for Constipation, CAP Levothyroxine Sodium (Synthroid) 75 Mcg Tab 75 MCG PO DAILY, TAB Multiple Vitamins W/ Minerals (Ocuvite) 1 Tab Tab 1 TAB PO QAM Vitamin E (Vitamin E) 1,000 Unit Cap 1000 UNITS PO QAM Discharge Exam Pt was seen and examined this morning. She is doing well without complaints. States pain of shoulder is adequately controlled. Pt has been walking some with PT/OT. Her daughter is present in the room and states the patient's orientation is sometimes off, and that is so today; pt cannot correctly name the date, year, or president. Review of Systems: Constitutional: No chills, No fever, No sweats Eyes: No diplopia ENT: No nasal symptoms, No sore throat, No tinnitus, No unusual epistaxis Respiratory: No cough, No dyspnea on exertion, No sputum Cardiovascular: No chest pain, No palpitations Abdomen: No constipation (Bowels moved yesterday), No diarrhea, No nausea, No pain, No vomiting Musculoskeletal: No calf pain, No joint pain, No muscle pain Genitourinary - Female: No dysuria, No hematuria, No urinary frequency, No urinary urgency Neurologic: + memory loss Integumentary: No itch, No rash Physical Exam: General Appearance: WD/WN, no apparent distress, + obese Eyes: PERRL, EOMI ENT: hearing grossly normal, pharynx normal Neck: supple, no JVD Respiratory/Chest: chest non-tender, no respiratory distress, no accessory muscle use, + pertinent finding (Breath sounds are diminished at bases, air movement throughout. ) Cardiovascular: regular rate, rhythm, normal peripheral pulses Abdomen / GI: normal bowel sounds, non tender, soft, no organomegaly Extremities: no calf tenderness, + pedal edema (+1 pitting edema bilateral LE. ) Neurologic/Psychiatric: alert, + disoriented (to date and time, pt cannot name the president. She is oriented to place and self. ) Skin: normal color, warm/dry (Anika Villasenor PA-C) Hospital Course Pt was admitted for Mechanical Fall with R Knee Pain: - XR Pelvis/Knees without evidence of acute fracture - Head CT without evidence of acute intracranial processes R Anterior Shoulder Dislocation - APPEARS CHRONIC - S/P Closed Reduction on 12/01/16 and 12/02/16 due to continued dislocation - it appears that this will continue to happen as a more involved surgery would be necessary and family would like to defer that at this time. Patient largely asymptomatic Maria Del Rosario Dermatitis: - Nystatin ointment top TID Hypothyroidism: - Synthroid 75 mcg daily Osteoarthritis: - Will continue home medications of ASA and Tylenol for pain UTI- Lactobacillus and E. Coli - Pansensitive - Treated with Rocephin 1 g IV x 3 days - TODAY 12/02/16 IS DAY #3 TOTAL ANTIBIOTICS - Start Ciprofloxacin 250 mg BID x 7 days with first dose given on 12/03/16 Discharge to [facility] Total Time Spent: Greater than 30 minutes This includes examination of the patient, discharge planning, medication reconciliation, and communication with other providers. (Anika Villasenor PA-C) agree with above (Munir Herron MD) Discharge Instructions Please refer to the electronic Patient Visit Report (Discharge Instructions) for additional information. (Anika Villasenor PA-C) Follow-Up Follow up with PCP, Dr. Ryan Chavira within 1 week. Follow up with Dr. Robins within 2 weeks. (Anika Villasenor PA-C) Additional Copies To Ryan Chavira M.D.
[2016-12-04] MEDS: ENOXAPARIN 40 MG/0.4 ML SYR SQ SCH (14:00)
[2016-12-04 15:13] VITALS: BP 107/73; PULSE 88; TEMP 36.7; O2SAT 96
--- NOTE | 2016-12-04 17:27 | Progress Note ---
Subjective Subjective Date of Service: Dec 04, 2016. Pt evaluation today including: conversation w/ family, chart review, review of studies, review of inpatient medication list Problem List Medical Problems: (1) Ambulatory dysfunction Status: Acute (2) Generalized weakness Status: Acute (3) UTI (urinary tract infection) Status: Acute Review of Systems Constitutional: No fever ENT: No hearing loss Cardiac: No chest pain Abdomen: No pain Physical Exam Vital Signs Vital Signs Past 24 Hours: Date Time Temp Pulse Resp B/P Pulse Ox O2 Delivery O2 Flow Rate FiO2 12/04/16 16:00 Room Air 12/04/16 15:13 36.7 88 18 107/73 96 Room Air 12/04/16 08:00 Room Air 12/04/16 07:31 36.6 74 18 129/80 96 Room Air 12/04/16 00:20 36.9 71 16 116/76 92 Room Air 12/03/16 20:00 Room Air Physical Exam: General Appearance: WD/WN, no apparent distress ENT: pharynx normal Neck: supple Respiratory/Chest: chest non-tender Cardiovascular: regular rate, rhythm Abdomen: normal bowel sounds Extremities: normal range of motion Neurologic/Psychiatric: alert Skin: normal color Medications Medications: Current Inpatient Medications Medications (Trade) Dose Ordered Sig/Carleen Route Start Time Stop Time Status Last Admin Dose Admin Enoxaparin Sodium (Lovenox Inj) 40 mg DAILY@1400 SQ 11/29/16 14:00 12/29/16 13:59 12/04/16 14:00 40 MG Acetaminophen (Tylenol Tab) 650 mg Q4H PRN PO 11/29/16 08:15 12/29/16 08:14 Ondansetron HCl (Zofran Inj) 4 mg Q6H PRN IV 11/29/16 08:15 12/29/16 08:14 Nystatin (Mycostatin Oint) 1 appln TID EXT 11/29/16 08:15 12/29/16 08:14 12/04/16 14:00 1 APPLN Aspirin (Ecotrin Tab) 325 mg DAILY PO 11/29/16 09:00 12/29/16 08:59 12/04/16 08:54 325 MG Docusate Sodium (coLACE CAP) 200 mg HS PRN PO 11/29/16 08:15 12/29/16 08:14 Levothyroxine Sodium (Synthroid Tab) 75 mcg DAILYBB PO 11/30/16 06:30 12/30/16 06:29 12/04/16 06:03 75 MCG Multivitamins/ Minerals (Multivitamin W/ Minerals Tab) 1 tab QAM PO 11/29/16 09:00 12/29/16 08:59 12/04/16 08:54 1 TAB Miscellaneous (Iv Fluids Completed) 1 ea PRN PRN N/A 11/29/16 11:15 11/29/17 11:14 Ciprofloxacin (Ciprofloxacin Tab) 250 mg Q12H PO 12/03/16 09:00 12/08/16 08:59 12/04/16 08:54 250 MG Assessment and Plan A 86-year-old female presents emergency department with a reported mechanical fall, right knee pain. This does not sound like a syncopal episode. Subsequent Right anterior shoulder dislocation-according to the patient, this injury may be at least 3 years old - Status post closed reduction in the OR 12/01 and 12/02 - appears a chronic condition and family wants to defer more extensive surgical intervention at this time - Orthopedics following - appreciate any further interventions Maria Del Rosario dermatitis -Nystatin ointment top TID Hypothyroidism - Synthroid 75 mcg daily UTI-lactobacillus, E. coli- pansensitive Cont Ciprofloxacin 250 mg BID x 6 more days DVT prophylaxis -Lovenox 40 mg subQ daily -TEDS, SCDs CODE STATUS -LEVEL I FULL CODE DISPO - Medically suitable for D/C to [facility] however no beds available, possibly tomorrow - Will await placement
[2016-12-05 00:30] VITALS: BP 127/84; PULSE 72; TEMP 36.5; O2SAT 97
[2016-12-05] MEDS: LEVOTHYROXINE 75 MCG TAB PO SCH (06:03)
[2016-12-05] MEDS ORDERED: NURSING VERBAL MED ORDER ONE (07:00)
[2016-12-05] MEDS ORDERED: POLYETHYLENE (MIRALAX) 17 GM PACK PO STA (07:01)
[2016-12-05 07:57] LABS: HEMATOCRIT 33.8 % (37-47); MEAN CELL VOLUME 96.3 fL (80-100); MEAN CORPUSCULAR HEMOGLOBIN 32.8 pg (25-34); MEAN PLATELET VOLUME 8.4 fL (7.4-10.4); PLATELET COUNT 249 K/uL (130-400); RED BLOOD COUNT 3.51 M/uL (4.2-5.4); WHITE BLOOD COUNT 5.25 K/uL (4.8-10.8)
[2016-12-05 08:03] VITALS: BP 130/75; PULSE 81; TEMP 36.9; O2SAT 95
[2016-12-05 08:28] LABS: CREATININE 0.73 mg/dl (0.60-1.20)
[2016-12-05] MEDS ORDERED: BISACODYL 10 MG SUPP PR STA (09:12)
[2016-12-05] MEDS ORDERED: POLYETHYLENE (MIRALAX) 17 GM PACK PO SCH (10:00)
[2016-12-05] MEDS: NYSTATIN OINT 15 GM TUBE EXT SCH ×2 (10:18→14:37)
[2016-12-05] MEDS: CEROVITE ADV FORMULA TAB PO SCH (10:19)
[2016-12-05] MEDS: CIPROFLOXACIN 250 MG TAB PO SCH (10:19)
[2016-12-05] MEDS: ASPIRIN 325 MG ECTAB PO SCH (10:19)
[2016-12-05] MEDS: ENOXAPARIN 40 MG/0.4 ML SYR SQ SCH (14:37)
[2016-12-05] MEDS ORDERED: DOCUSATE SODIUM 100 MG CAP PO SCH (22:00)
[2017-06-05] MEDS ORDERED: LEVO100T7 PO (14:35)
[2017-06-05] MEDS ORDERED: POLY335019 PO (14:35)
[2017-06-05] MEDS ORDERED: MULTTAB63 PO (14:35)
[2017-06-05] MEDS ORDERED: VITA1TAB4 PO (14:35)
== END 2016-12-05 15:35 | DRG 563 ==
LOC: ENRESERVTM → ENRESERVDT → EDBD 03:57 → C.EDB 03:58 → C.MS4W 08:18 → OBSVTOIN 11-30 09:32
PROVIDERS: ADMIT Hospitalist; ATTEND Hospitalist
PROC: 0PSCXZZ Reposition Right Humeral Head, External Approach (ICD-10-PCS; principal; 2016-11-30 09:15)
PROC: 0PSCXZZ Reposition Right Humeral Head, External Approach (ICD-10-PCS; 2016-12-02)
DX: M24.411 Recurrent dislocation, right shoulder (principal); N39.0 Urinary tract infection, site not specified; W19.XXXA Unspecified fall, initial encounter; Y92.009 Unspecified place in unspecified non-institutional (private) residence as the place of occurrence of the external cause; E03.9 Hypothyroidism, unspecified; R53.1 Weakness; E86.0 Dehydration; R26.89 Other abnormalities of gait and mobility; L30.8 Other specified dermatitis; B37.2 Candidiasis of skin and nail; R29.6 Repeated falls; E66.9 Obesity, unspecified; D72.829 Elevated white blood cell count, unspecified; B96.20 Unspecified Escherichia coli [E. coli] as the cause of diseases classified elsewhere; B96.89 Other specified bacterial agents as the cause of diseases classified elsewhere; D64.9 Anemia, unspecified; M12.811 Other specific arthropathies, not elsewhere classified, right shoulder; M75.101 Unspecified rotator cuff tear or rupture of right shoulder, not specified as traumatic; Z96.653 Presence of artificial knee joint, bilateral; Z68.30 Body mass index [BMI] 30.0-30.9, adult; Z79.899 Other long term (current) drug therapy; Z79.82 Long term (current) use of aspirin

== ENCOUNTER → 2017-02-16 | Outpatient (CLI) | payer OTHER ==
[~2017-02-16] MED LIST changes: +ACET-24 PO; -CODEINE PO; +CPR250 PO; +FLUD0.1T10 PO; +FRRG PO; +LEVO100T7 PO; +MULTTAB63 PO; +NYSO15 EXT; +POLY335019 PO; +RXC5 PO; -TYLENOL PO; +VITA1TAB4 PO
== END ==
LOC: C.LABCC 08:47
PROVIDERS: ATTEND Internal Medicine
DX: E03.9 Hypothyroidism, unspecified (principal)

== ENCOUNTER → 2017-03-18 | Outpatient (CLI) | payer OTHER ==
[~2017-03-18] MED LIST changes: +CIPR250T5 PO; -CPR250 PO
== END ==
LOC: C.LABCC 16:10
PROVIDERS: ATTEND Internal Medicine
DX: R05 Cough (principal); R09.89 Other specified symptoms and signs involving the circulatory and respiratory systems

== ENCOUNTER → 2017-04-02 | Outpatient (CLI) | payer OTHER | LOC: C.LABCC 08:00 | PROVIDERS: ATTEND Internal Medicine | DX: E03.9 Hypothyroidism, unspecified (principal) ==

== ENCOUNTER → 2017-05-28 | Outpatient (CLI) | payer OTHER ==
[~2017-05-28] MED LIST changes: -CIPR250T5 PO; +CPR250 PO
--- NOTE | 2017-06-05 08:51 | CODING QUERY MEDICAL NECESSITY ---
CQSUPPORTING DIAGNOSIS NEEDED A supporting diagnosis is required for the test/procedure performed on this patient in order for us to be reimbursed by the patient's insurance. Please provide a supporting diagnosis for the following test/procedure listed below next to the test name along with your signature. *If there is no additional diagnosis for this patient that would support the following test/procedure please document that below next to the test/procedure. Test(s)/Procedure(s) that require a supporting diagnosis: DOS 05/28/17 URINE CULTURE TEST PATIENT AT [facility] Provider Signature: Date: Thank you Evelyn Case Health Information Management Once completed, please kindly fax back to [phone] For questions please call [phone]
== END ==
LOC: C.LABCC 17:37
PROVIDERS: ATTEND Internal Medicine
DX: E87.1 Hypo-osmolality and hyponatremia (principal); Z01.812 Encounter for preprocedural laboratory examination

== ENCOUNTER → 2017-05-28 | Outpatient (CLI) | payer OTHER ==
[2017-05-28 13:23] LABS: BLOOD UREA NITROGEN 24 mg/dl (7-18); BUN/CREATININE RATIO 30.9 (10-20); CARBON DIOXIDE 24 mmol/L (21-32); CHLORIDE 99 mmol/L (98-107); CREATININE 0.76 mg/dl (0.60-1.20); GLUCOSE 81 mg/dl (70-99); POTASSIUM 4.3 mmol/L (3.5-5.1); SODIUM 131 mmol/L (136-145)
== END ==
LOC: C.LABCC 12:46
PROVIDERS: ATTEND Internal Medicine
DX: E87.1 Hypo-osmolality and hyponatremia (principal)

== ENCOUNTER → 2017-06-09 | Outpatient (CLI) | payer OTHER ==
[~2017-06-09] MED LIST changes: -CPR250 PO; -LEVO75TA PO; -MULT-188 PO; -NYSO15 EXT; -VITA10004 PO
== END | disposition home or self-care (01) ==
LOC: C.LABCC 11:59
PROVIDERS: ATTEND Internal Medicine
DX: R19.7 Diarrhea, unspecified (principal)

== ENCOUNTER → 2017-06-15 | Outpatient (CLI) | payer OTHER ==
[2017-06-15 08:44] LABS: BLOOD UREA NITROGEN 19 mg/dl (7-18); BUN/CREATININE RATIO 27.2 (10-20); CALCIUM 8.9 mg/dl (8.5-10.1); CARBON DIOXIDE 26 mmol/L (21-32); CHLORIDE 98 mmol/L (98-107); CREATININE 0.71 mg/dl (0.60-1.20); GLUCOSE 83 mg/dl (70-99); POTASSIUM 4.4 mmol/L (3.5-5.1); SODIUM 131 mmol/L (136-145)
== END ==
LOC: C.LABCC 08:10
PROVIDERS: ATTEND Internal Medicine
DX: E87.1 Hypo-osmolality and hyponatremia (principal)

== ENCOUNTER → 2017-06-16 | Outpatient (CLI) | payer OTHER | LOC: C.LABCC 09:56 | PROVIDERS: ATTEND Internal Medicine | DX: E87.1 Hypo-osmolality and hyponatremia (principal) ==

== ENCOUNTER → 2017-06-18 | Outpatient (CLI) | payer OTHER ==
[2017-06-18 08:49] LABS: BLOOD UREA NITROGEN 19 mg/dl (7-18); CALCIUM 8.8 mg/dl (8.5-10.1); CARBON DIOXIDE 28 mmol/L (21-32); CHLORIDE 96 mmol/L (98-107); CREATININE 0.73 mg/dl (0.60-1.20); GLUCOSE 83 mg/dl (70-99); POTASSIUM 4.2 mmol/L (3.5-5.1); SODIUM 132 mmol/L (136-145)
== END ==
LOC: C.LABCC 08:04
PROVIDERS: ATTEND Internal Medicine
DX: E87.1 Hypo-osmolality and hyponatremia (principal)

== ENCOUNTER → 2017-06-20 | Outpatient (CLI) | payer OTHER ==
[2017-06-20 09:00] LABS: BLOOD UREA NITROGEN 23 mg/dl (7-18); BUN/CREATININE RATIO 28.2 (10-20); CALCIUM 9.1 mg/dl (8.5-10.1); CARBON DIOXIDE 27 mmol/L (21-32); CHLORIDE 98 mmol/L (98-107); CREATININE 0.82 mg/dl (0.60-1.20); GLUCOSE 84 mg/dl (70-99); POTASSIUM 4.2 mmol/L (3.5-5.1); SODIUM 134 mmol/L (136-145)
== END | disposition home or self-care (01) ==
LOC: C.LABCC 08:13
PROVIDERS: ATTEND Internal Medicine
DX: E87.1 Hypo-osmolality and hyponatremia (principal)

== ENCOUNTER 2017-06-22 06:16 | Inpatient (IN) | payer OTHER ==
[2017-05-23 10:39] LABS: BASO % 0.4 %; BASO ABS # 0.02 K/uL (0-0.2); COMPLETE YES; EOS % 3.8 %; HEMATOCRIT 35.4 % (37-47); IG% 0.4 %; LYMPH % 23.9 %; LYMPH ABS # 1.31 K/uL (1.2-3.4); MEAN CELL VOLUME 94.1 fL (80-100); MEAN CORPUSCULAR HEMOGLOBIN 31.1 pg (25-34); MEAN CORPUSCULAR HGB CONC 33.1 g/dl (32-36); MEAN PLATELET VOLUME 8.6 fL (7.4-10.4); MONO % 11.5 %; PLATELET COUNT 204 K/uL (130-400); RED BLOOD COUNT 3.76 M/uL (4.2-5.4); WHITE BLOOD COUNT 5.47 K/uL (4.8-10.8)
[2017-05-23 10:59] LABS: PROTHROMBIN TIME (PATIENT) 10.7 SECONDS (9.0-12.0)
[2017-05-23 11:03] LABS: BLOOD UREA NITROGEN 20 mg/dl (7-18); BUN/CREATININE RATIO 24.1 (10-20); CALCIUM 8.8 mg/dl (8.5-10.1); CARBON DIOXIDE 25 mmol/L (21-32); CHLORIDE 98 mmol/L (98-107); CREATININE 0.81 mg/dl (0.60-1.20); GLUCOSE 79 mg/dl (70-99); POTASSIUM 4.3 mmol/L (3.5-5.1); SODIUM 131 mmol/L (136-145)
[2017-06-05 14:36] VITALS: BMI 34.0
--- NOTE | 2017-06-05 16:24 | PAT Medication Instructions ---
Service Date Jun 05, 2017. Current Home Medication List Acetaminophen (Tylenol Arthitis Ext Rel), 650 MG PO 1630 Aspirin (Aspirin Ec), 325 MG PO QAM Docusate Sodium (Colace), 200 MG PO HS PRN for Constipation Levothyroxine Sodium (Levothyroxine Sodium), 1 TAB PO QAM Multiple Vitamins W/ Minerals (Therems M), 1 TAB PO DAILY Polyethylene Glycol 3350 (Miralax), 17 GM PO DAILY Vitamin E (Vitamin E), 2 TAB PO QAM Medication Instructions For Your Scheduled Surgery - Check with surgeon for instructions (otherwise okay from an anesthesia perspective) Aspirin (Aspirin Ec), 325 MG PO QAM - Hold the following medications 2 weeks prior to surgery: Vitamin E (Vitamin E), 2 TAB PO QAM - Hold the following medications the morning of surgery: Polyethylene Glycol 3350 (Miralax), 17 GM PO DAILY Multiple Vitamins W/ Minerals (Therems M), 1 TAB PO DAILY Docusate Sodium (Colace), 200 MG PO HS PRN for Constipation - Take the following medications the morning of surgery with a sip of water: Levothyroxine Sodium (Levothyroxine Sodium), 1 TAB PO QAM Acetaminophen (Tylenol Arthitis Ext Rel), 650 MG PO 1630 - Take the following medications as scheduled the night before surgery: Acetaminophen (Tylenol Arthitis Ext Rel), 650 MG PO 1630 If you have any questions please call us at [phone] or [phone] or [phone]
--- NOTE | 2017-06-18 09:23 | History and Physical ---
History & Physical Date Jun 18, 2017. Chief Complaint Right shoulder pain History of Present Illness The patient is a 86 year old female with complaints of right shoulder pain. She has known chronic right shoulder dislocation. She has increasing pain and bruising along the anterior chest and into her breast. She denies any falls. She states the pain has been getting worse. She is no longer able to use the arm for ADL's. She has tried injections, PT and NSAIDs with no relief. She is scheduled for a Right Reverse TSA with constrained liner. Past Medical/Surgical History Medical Problems: (1) Localized, primary osteoarthritis of the lower leg (2) Shoulder dislocation (3) Hypothyroidism PSHx: Bilateral Knee surgery Additional History Hepatic Disease: No Endocrine Disorder: No Kidney Disease: No Hypertension: No Heart Disease: No Bleeding Tendencies: No Infectious Diseases: No Allergies Coded Allergies: No Known Allergies (Verified , 06/05/17) Home Medications Scheduled Acetaminophen (Tylenol Arthitis Ext Rel), 650 MG PO 1630 Aspirin (Aspirin Ec), 325 MG PO QAM Levothyroxine Sodium (Levothyroxine Sodium), 1 TAB PO QAM Multiple Vitamins W/ Minerals (Therems M), 1 TAB PO DAILY Polyethylene Glycol 3350 (Miralax), 17 GM PO DAILY Vitamin E (Vitamin E), 2 TAB PO QAM Scheduled PRN Docusate Sodium (Colace), 200 MG PO HS PRN for Constipation Physical Examination Skin: warm/dry Eyes: EOMI ENT: normal ENT inspection Head: normocephalic, atraumatic Neck: supple Respiratory/Chest: lungs clear Cardiovascular: regular rate, rhythm Abdomen / GI: normal bowel sounds, non tender Extremities: normal inspection, + pertinent finding (Decreased ROM and strength of right upper extremity) Neurologic/Psych: alert, oriented x 3 Diagnosis Chronic Right shoulder dislocation Plan of Treatment Patient is scheduled for a Right reverse TSA with constrained liner. She has failed conservative measure of cortisone injection, NSAIDs and PT. Risks and benefits to surgery were discuss that include but not limit to infection, DVT, pain, stiffness, need for revision surgery, failure to relieve all symptoms, damage to blood vessels, damage to nerves, risks of anesthesia were all discussed with the patient and she wishes to proceed. All questions were answered to her satisfaction.
[2017-06-22] VITALS (12 sets, daily range): BP systolic 98–157; BP diastolic 64–97; PULSE 66–84; TEMP 35.9–36.9; O2SAT 92–97; Ht 157.5 cm; Wt 81.7 kg
[~2017-06-22] VITALS: Ht 157.5 cm; Wt 81.7 kg
[~2017-06-22 06:16] MED LIST changes: -ACET-24 PO; +ACETAMINOPHEN 500 MG TAB PO SCH; +CEFAZOLIN 2000 MG/60 ML D5W 60 ML IV SCH; +CeleBREX 200 MG CAP PO SCH; +DEXAMETHASONE 4 MG TAB PO SCH; +FAMOTIDINE 20 MG TAB PO SCH; -FLUD0.1T10 PO; -FRRG PO; +GABAPENTIN 300 MG CAP PO SCH; +LACTATED RINGER'S 1000ML 1,000 ML IV SCH; +LACTATED RINGER'S 1000ML IV SCH; +ROPIVACAINE 5MG/ML 30 ML 150 MG, BUPIVACAINE/EPINEPHR 0.5% MPF 30 ML, KETOROLAC TROMETH... INFIL SCH; -RXC5 PO
[2017-06-22] MEDS: TRANEXAMIC ACID INJ 1,000 MG in SODIUM CHLORIDE 0.9% 100ML 100 ML IV SCH ×2 (06:30→08:13)
[2017-06-22] MEDS ORDERED: FLUD0.1T10 PO (07:03)
[2017-06-22] MEDS ORDERED: ROPIVACAINE 0.5% 5 MG/ML 30 ML VIAL ONE (07:20)
[2017-06-22] MEDS ORDERED: FENTANYL CITRATE INJ 50 MCG/1 ML 2 ML VIAL ONE (07:23)
[2017-06-22] MEDS ORDERED: ONDANSETRON INJ 2 MG/ML 2 ML VIAL IV PRN ×2 (07:30→12:45)
[2017-06-22] MEDS ORDERED: FENTANYL CITRATE INJ 50 MCG/1 ML 2 ML VIAL IV PRN (07:30)
[2017-06-22] MEDS ORDERED: ATROPINE SULFATE 0.1 MG/ML 5ML SYR IV PRN (07:30)
[2017-06-22] MEDS ORDERED: EpHEDrine SULFATE INJ 50 MG/ML AMP IV PRN (07:30)
[2017-06-22 08:06] LABS: ESTIMATED AVERAGE GLUCOSE 105 mg/dl; HA1C FLAG Normal (Normal)
[2017-06-22] MEDS ORDERED: BACITRACIN 50000 UNIT VIAL ONE (08:44)
[2017-06-22] MEDS ORDERED: THROMBIN FOR SOLN 20000 UNIT KIT ONE (08:44)
[2017-06-22] MEDS ORDERED: POVIDONE-IODINE OP SOLN 30 ML BTL ONE (08:44)
[2017-06-22] MEDS ORDERED: VANCOMYCIN HCL 1000MG/20ML VIAL ONE (08:44)
[2017-06-22] MEDS ORDERED: PHENYLEPHRINE 100MCG/ML 5ML SYR ONE ×2 (09:49→12:22)
[2017-06-22] MEDS ORDERED: EpHEDrine SULFATE INJ 50 MG/ML AMP ONE ×2 (09:49→12:22)
[2017-06-22] MEDS ORDERED: PROPOFOL IV EMULSION 10 MG/ML 20 ML VIAL IV ONE (12:22)
[2017-06-22] MEDS ORDERED: LIDOCAINE HCL 2% 2 ML VIAL (20MG/ML) ONE (12:22)
[2017-06-22] MEDS ORDERED: ONDANSETRON INJ 2 MG/ML 2 ML VIAL ONE (12:22)
[2017-06-22] MEDS ORDERED: GLYCOPYRROLATE INJ 0.2 MG/ML VIAL ONE (12:22)
[2017-06-22] MEDS ORDERED: DEXAMETHASONE SOD INJ 4 MG/ML VIAL ONE (12:22)
[2017-06-22] MEDS ORDERED: NEOSTIGMINE METHYLSULFATE 5 MG/5 ML SYR ONE (12:22)
[2017-06-22] MEDS ORDERED: MoRPHine SULFATE 2 MG/ML CARP IV PRN (12:45)
[2017-06-22] MEDS ORDERED: OXYCODONE HCL IR 5 MG TAB (IMMEDIATE RELEASE) PO PRN (12:45)
[2017-06-22] MEDS ORDERED: DOCUSATE SODIUM 100 MG CAP PO PRN (12:45)
[2017-06-22] MEDS ORDERED: MAGNESIUM HYDROXIDE SUSP 30 ML UDC PO PRN (12:45)
[2017-06-22] MEDS ORDERED: METOCLOPRAMIDE HCL INJ 5 MG/ML 2 ML VIAL IV PRN (12:45)
--- NOTE | 2017-06-22 12:53 | [facility] Operative Report ---
Operative Report Operative Date Jun 22, 2017. Pre-Operative Diagnosis Chronic Right Shoulder Dislocation and rotator cuff arthropathy Post-Operative Diagnosis same Procedure(s) Performed Right Reverse Total Shoulder Arthroplasty with constrained liner and anterior augmented glenoid plate Surgeon Dr. Amari Robins Proposal Analyst Surgeon(s) Carlo March PA-C Estimated Blood Loss 100ML Findings significant anterior bone loss to glenoid Specimens Permanent Solution: A. Right Humeral Head Drains 1 hemovac Anesthesia geta Complication(s) None Disposition Recovery Room / PACU Indications 86-year-old female with a chronic right shoulder dislocation. She was initially treated conservatively as she was not symptomatic and was not having an undue amount of pain and given her other medical comorbidities. However she had increasing pain and dysfunction in the shoulder and was becoming debilitated secondary to shoulder pain. Therefore the family and I elected to proceed with a right reverse total shoulder arthroplasty. Description of Procedure Risks, benefits and alternatives to surgery including, but not limited to, infection DVT, pain, stiffness, need for revision surgery, redislocation, failure to relieve all symptoms, damage to blood vessels, damage to nerves, risk of anesthesia were discussed with the patient and they wished to proceed. The patient was identified. Laterality was confirmed and marked. The patient received a preoperative antibiotic as well as an interscalene block. They were transferred to the operating room and placed in the supine position and induced into general endotracheal anesthesia per the anesthesia staff. The patient was then safely transferred to a slight beachchair position. The patient was secured in the Tenet positioner. All pressure points were well padded. The shoulder was prepped and draped in the usual sterile manner with ChloraPrep. The arm was secured in the Spider esquivel. I made a longitudinal incision just lateral to the coracoid, sharply incising through the skin and utilizing Bovie electrocautery to achieve hemostasis. I identified the cephalic vein and mobilized it laterally with the deltoid. I mobilize the pectoralis and mobilize this medially releasing a small portion of the upper border of the pec tendon to improve visualization. I then identified and mobilized the conjoined tendon. The humerus was anteriorly dislocated and resided underneath the coracoid. There was no supra or infraspinatus or any teres minor still attached. There was still a portion of the subscapularis intact. I then released the subscapularis. I pinned into place my humeral head version cutting guide and made my humeral head resection. I then sequentially reamed and sequentially broached up to a size [7] which is this systems smallest size. I then placed the trial humeral stem into the shoulder. It was exceedingly difficult to re-displace the humerus back into a more normal posterior located position to expose the glenoid. Therefore do most of my glenoid exposure with the humerus dislocated anteriorly. I placed retractors around the glenoid and then excised the residual biceps tendon stump and glenoid labrum. I elevated the soft tissues and the inferior aspect of the glenoid to improve exposure and released tissues circumferentially. She had fairly significant anterior wear. I elected to place and augmented glenoid plate into position. I used the posterior augmented left sided glenoid plate which gave me a anteriorly augmented right glenoid plate. I then positioned and drilled for the central post for the glenoid plate. The glenoid plate was bone grafted with bone taken from the humeral head. I impacted the definitive glenoid plate into position and then placed a total of 4 compression screws that were then locked into position with locking caps. Still anterior version and bone loss on the glenoid side so I decided to upsize her glenoid sphere for my more standard 38 to a size 42 to increase my lateral offset as well as gain a larger humeral liner. I did not feel that the lateral offset clonus finger would be able to be utilized as a didn't feel as though I could then get the humerus reduced as the lateral offset is a +4 on the 38 mm whereas a size 42 standard gives me an additional +2 mm of lateralization. I then placed the size 42 glenosphere onto the plate and secured it with a locking screw. I then removed the trial humeral stem and placed the definitive humeral stem. I attempted to trial off of the definitive size 7 humeral stem. I was unable to get the humerus reduced. I therefore excised a bit more of proximal humerus bone and then re-impacted the humeral stem. Her bone was exceptionally soft and we started to get some comminution on the medial side of the metaphysis. There was no propagation of any cracks but the medial calcar was exceedingly soft. I therefore elected to cement the stem into position with Palacos G cement. I then trialed off of the cemented stem and used a constrained liner. The definitive components used were [employer] Equinox: Humeral cemented stem: 7 Anterior 8 augment glenoid plate Glenosphere: 42 Humeral tray:+ [0] Humeral polyethylene liner: + 0 constrained I was not able to re-dislocate the shoulder once the constrained liner was then. However bringing the arm into extreme external rotation we'll place the shoulder risk so the plan will be for no physical therapy for 6 weeks and then no formal physical therapy simply allow the patient to use the arm as tolerated. I thoroughly irrigated the wound. Deep tissues were anesthetized with an orthomix solution. I then locked my definitive humeral tray into position with a torque limiting screw. I then impacted the definitive humeral polyethylene liner into position. I then reduced the shoulder. There was good range of motion and good stability after the reduction. The wound was again thoroughly irrigated and a Betadine soak was performed. A deep drain was placed. The deltopectoral interval was closed with interrupted #1 Ethibond suture. The subcutaneous tissue was closed with interrupted 2-0 Vicryl suture. The skin was closed with jennifer. A sterile dressing was applied. A sling was placed. All needle and sponge counts were correct at the end of the procedure. The patient was transferred to the PACU in stable condition without apparent complication. The PA-C was necessary for assistance with procedure for assistance in positioning, prepping, draping, retraction and closure. I attest to the content of the Intraoperative Record and any orders documented therein. Any exceptions are noted below.
--- NOTE | 2017-06-22 13:27 | DIAGNOSTIC IMAGING REPORT ---
RIGHT SHOULDER 2 VIEWS CLINICAL HISTORY: Postoperative examination. FINDINGS: 2 portable views of the right shoulder are compared to study dated 12/11/2016. The skeletal structures are osteopenic. A right shoulder arthroplasty is in near-anatomic alignment. No acute fracture is seen. There are expected postoperative findings overlying the right shoulder including skin clips, a surgical drain, subcutaneous gas, and soft tissue swelling. The visualized right lung parenchyma appears clear noting basilar atelectasis. IMPRESSION: Expected postoperative findings status post right shoulder arthroplasty. No fracture is seen. Electronically signed by: Pablo Whitney M.D. 06/22/2017 1:26 PM Dictated Date/Time: 06/22/2017 1:25 PM
--- NOTE | 2017-06-22 13:32 | Anesthesiology Progress Note ---
Anesthesia Post Op Note Date & Time Jun 22, 2017 at 13:31 Vital Signs Pain Intensity: 0 Vital Signs Past 12 Hours Date Time Temp Pulse Resp B/P (MAP) Pulse Ox O2 Delivery O2 Flow Rate FiO2 06/22/17 13:25 36.0 66 16 126/86 92 Oxymask 3 06/22/17 13:15 68 16 121/74 91 Oxymask 5 06/22/17 13:05 74 16 112/70 95 Oxymask 5 06/22/17 12:55 79 16 111/76 96 Oxymask 10 06/22/17 12:47 36.0 78 16 111/84 96 Oxymask 10 06/22/17 08:57 64 16 175/93 (120) 99 Mask 06/22/17 08:41 64 18 167/105 (125) 99 Oxymask 06/22/17 08:27 66 16 166/104 (124) 98 Oxymask 06/22/17 08:25 69 16 180/105 (130) 99 Oxymask 06/22/17 07:01 36.8 75 20 157/97 (117) 94 Room Air Notes Mental Status: alert / awake / arousable, participated in evaluation Pt Amnestic to Procedure: Yes Nausea / Vomiting: adequately controlled Pain: adequately controlled Airway Patency, RR, SpO2: stable & adequate BP & HR: stable & adequate Hydration State: stable & adequate Anesthetic Complications: no major complications apparent
--- NOTE | 2017-06-22 17:07 | Medical Consult ---
Consultation Date of Consultation: Jun 22, 2017. Attending Physician: Amari Robins M.D. Reason for Consultation: Medical management History of Present Illness Patient is an 86 y/o female, with PMHx of hypothyroidism, s/p right reverse total shoulder arthroplasty by Dr. Robins on 06/22. Patient states she is feeling well postop. No operative complications noted. No BM/flatus postop. Pain is well controlled. Patient denies any fever, chills, sweats, lightheadedness, dizziness, vision changes, CP, palpitations, edema, SOB, wheezing, cough, abdominal pain, nausea, vomiting, diarrhea, urinary symptoms, melena, numbness/tingling, weakness, anxiety/depression, active bleeding, or new skin discoloration/changes. Past Medical/Surgical History Medical Problems: Hypothyroidism Surgical history: cholecystectomy appendectomy hysterectomy bilateral knee replacements Family History No pertinent family history Social History Smoking Status: Never Smoker Marital Status: Housing Status: lives with significant other Occupation Status: retired Allergies Coded Allergies: No Known Allergies (Verified , 06/05/17) Home Medications Current Inpatient Medications Medications (Trade) Dose Ordered Sig/Carleen Route Start Time Stop Time Status Last Admin Dose Admin Aspirin (Ecotrin Tab) 325 mg QAM PO 06/23/17 09:00 07/23/17 08:59 Docusate Sodium (coLACE CAP) 200 mg HS PRN PO 06/22/17 12:45 07/22/17 12:44 Fludrocortisone Acetate (Florinef Tab) 0.1 mg DAILY PO 06/23/17 09:00 07/23/17 08:59 Levothyroxine Sodium (Synthroid Tab) 100 mcg DAILYBB PO 06/23/17 06:00 07/23/17 05:59 Multivitamins/ Minerals (Multivitamin W/ Minerals Tab) 1 tab DAILY PO 06/23/17 09:00 07/23/17 08:59 Polyethylene (Miralax Powder Packet) 17 gm QAM PO 06/23/17 09:00 07/23/17 08:59 [id number] Acetate (Vitamin E Cap) 800 interunit QAM PO 06/23/17 09:00 07/23/17 08:59 Metoclopramide HCl (Reglan Inj) 10 mg Q6H PRN IV 06/22/17 12:45 07/22/17 12:44 Ondansetron HCl (Zofran Inj) 4 mg Q6H PRN IV 06/22/17 12:45 07/22/17 12:44 Pantoprazole Sodium (Protonix Tab) 40 mg QAM PO 06/23/17 09:00 07/23/17 08:59 Potassium Chloride/Dextrose/ Sod Cl 1,000 ml @ 100 mls/hr Q10H IV 06/22/17 15:00 07/22/17 12:33 Oxycodone HCl (Roxicodone Immediate Rel Tab) `1-2 TABS FOR PAIN `1 TAB... Q4H PRN PO 06/22/17 12:45 07/06/17 12:44 Acetaminophen (Tylenol Tab) 1,000 mg Q8 PO 06/22/17 14:00 07/22/17 13:59 Morphine Sulfate (MoRPHine SULFATE INJ) 2 mg Q2H PRN IV 06/22/17 12:45 07/06/17 12:44 Magnesium Hydroxide (Milk Of Magnesia Susp) 30 ml Q6H PRN PO 06/22/17 12:45 07/22/17 12:44 Ferrous Gluconate (Ferrous Gluconate Tab) 324 mg TIDM PO 06/22/17 17:45 07/22/17 17:59 Cefazolin Sodium 2000 mg/Dextrose 60 ml @ 100 mls/hr Q8H IV 06/22/17 16:00 06/23/17 00:35 Current Inpatient Medications Current Inpatient Medications Medications (Trade) Dose Ordered Sig/Carleen Route Start Time Stop Time Status Last Admin Dose Admin Aspirin (Ecotrin Tab) 325 mg QAM PO 06/23/17 09:00 07/23/17 08:59 Docusate Sodium (coLACE CAP) 200 mg HS PRN PO 06/22/17 12:45 07/22/17 12:44 Fludrocortisone Acetate (Florinef Tab) 0.1 mg DAILY PO 06/23/17 09:00 07/23/17 08:59 Levothyroxine Sodium (Synthroid Tab) 100 mcg DAILYBB PO 06/23/17 06:00 07/23/17 05:59 Multivitamins/ Minerals (Multivitamin W/ Minerals Tab) 1 tab DAILY PO 06/23/17 09:00 07/23/17 08:59 Polyethylene (Miralax Powder Packet) 17 gm QAM PO 06/23/17 09:00 07/23/17 08:59 cl-Soznv-Qcirejvmqc Acetate (Vitamin E Cap) 800 interunit QAM PO 06/23/17 09:00 07/23/17 08:59 Metoclopramide HCl (Reglan Inj) 10 mg Q6H PRN IV 06/22/17 12:45 07/22/17 12:44 Ondansetron HCl (Zofran Inj) 4 mg Q6H PRN IV 06/22/17 12:45 07/22/17 12:44 Pantoprazole Sodium (Protonix Tab) 40 mg QAM PO 06/23/17 09:00 07/23/17 08:59 Potassium Chloride/Dextrose/ Sod Cl 1,000 ml @ 100 mls/hr Q10H IV 06/22/17 15:00 07/22/17 12:33 Oxycodone HCl (Roxicodone Immediate Rel Tab) `1-2 TABS FOR PAIN `1 TAB... Q4H PRN PO 06/22/17 12:45 07/06/17 12:44 Acetaminophen (Tylenol Tab) 1,000 mg Q8 PO 06/22/17 14:00 07/22/17 13:59 Morphine Sulfate (MoRPHine SULFATE INJ) 2 mg Q2H PRN IV 06/22/17 12:45 07/06/17 12:44 Magnesium Hydroxide (Milk Of Magnesia Susp) 30 ml Q6H PRN PO 06/22/17 12:45 07/22/17 12:44 Ferrous Gluconate (Ferrous Gluconate Tab) 324 mg TIDM PO 06/22/17 17:45 07/22/17 17:59 Cefazolin Sodium 2000 mg/Dextrose 60 ml @ 100 mls/hr Q8H IV 06/22/17 16:00 06/23/17 00:35 Physical Exam Date Time Temp Pulse Resp B/P (MAP) Pulse Ox O2 Delivery O2 Flow Rate FiO2 06/22/17 16:31 36.6 78 16 120/82 (95) 95 Nasal Cannula 2.0 06/22/17 15:35 36.4 75 16 124/84 (97) 92 Nasal Cannula 2.0 06/22/17 15:07 36.4 80 16 125/79 (94) 97 Nasal Cannula 2.0 06/22/17 14:34 36.4 66 16 119/78 (92) 94 Nasal Cannula 2.0 06/22/17 13:45 66 16 116/77 93 Oxymask 3 06/22/17 13:35 66 16 127/83 92 Oxymask 3 06/22/17 13:25 36.0 66 16 126/86 92 Oxymask 3 06/22/17 13:15 68 16 121/74 91 Oxymask 5 06/22/17 13:05 74 16 112/70 95 Oxymask 5 06/22/17 12:55 79 16 111/76 96 Oxymask 10 06/22/17 12:47 36.0 78 16 111/84 96 Oxymask 10 06/22/17 08:57 64 16 175/93 (120) 99 Mask 06/22/17 08:41 64 18 167/105 (125) 99 Oxymask 06/22/17 08:27 66 16 166/104 (124) 98 Oxymask 06/22/17 08:25 69 16 180/105 (130) 99 Oxymask 06/22/17 07:01 36.8 75 20 157/97 (117) 94 Room Air General Appearance: no apparent distress, + pertinent finding (2L O2 NC ) Head: normocephalic, atraumatic Eyes: PERRL ENT: hearing grossly normal Neck: supple Respiratory/Chest: lungs clear, no respiratory distress, no accessory muscle use Cardiovascular: regular rate, rhythm Abdomen/GI: normal bowel sounds, non tender, soft Extremities/Musculoskelatal: no calf tenderness, no pedal edema Neurologic/Psych: alert, normal mood/affect, oriented x 3 Skin: normal color, warm/dry, no rash Laboratory Results Last 24 Hours Test 06/22/17 07:31 Estimated Average Glucose 105 mg/dl Hemoglobin A1c 5.3 % Assessment & Plan Patient is an 86 y/o female, with PMHx of hypothyroidism, s/p right reverse total shoulder arthroplasty by Dr. Robins on 06/22. s/p right reverse total shoulder arthroplasty by Dr. Robins on 06/22: - Surgical management, pain management, PT/OT, and DVT prophylaxis as per primary team - Follow postop CBC and PRP Hypothyroidism: Synthroid 100 mcg daily GI Prophylaxis: Protonix DVT Prophylaxis: As per primary team Code Status: LEVEL I, FULL Dispo: Discharge as per primary team Thank you for this consultation. We will continue to follow throughout hospital stay. I personally interviewed and examined the patient I discussed the above plan with Miss Keysha Crawford I agree with her Hx and PE 86 y/o/f, s/p right reverse total shoulder arthroplasty by Dr. Robins today tolerated the procedure well and has no complain . ROS/PMHx: as HPI FHx/SHx/labs/meds reviewed as needed PE: average built, not in acute distress LUNGs: normal exam, no wheezing/R Heart: s1/s2 normal, no G/R/M ABD: soft, ND, N tender, tenderness in right CVA Ext: B/L LE no edema or swelling Neuro: pleasant,AAOX3, EOMI, moves all ext, CN 2-12 intact right hand, sensation . color and mobility intact, right shoulder wrapped Assessment: arthritis s/p right reverse total shoulder arthroplasty Hypothyroidism Plan: pain control supportive care continue out patient meds as indicated DVT prophylaxis and PT as per primary orthopedic team
[2017-06-22] MEDS: D5W AND 1/2NSS + 20MEQ KCL 1,000 ML IV SCH (18:07)
[2017-06-22] MEDS: FERROUS GLUCONATE 324 MG TAB PO SCH (18:08)
[2017-06-22] MEDS: CEFAZOLIN IV 2,000 MG in DEXTROSE 5% 50ML 50 ML IV SCH ×2 (18:08→23:24)
[2017-06-22] MEDS: ACETAMINOPHEN 500 MG TAB PO SCH ×2 (18:09→21:51)
[2017-06-22 18:28] LABS: URINE APPEARANCE TURBID (CLEAR); URINE BILIRUBIN NEG (NEG); URINE COLOR DK YELLOW; URINE EPITHELIAL CELL AUTO >30 /lpf (0-5); URINE NITRITE NEG (NEG); URINE PH >= 9.0 (4.5-7.5); URINE SPECIFIC GRAVITY 1.024 (1.000-1.030); UROBILINOGEN NEG (NEG)
[2017-06-22 18:30] LABS: MANUAL MICROSCOPIC REQUIRED? NO; REVIEW REQ? YES
[2017-06-22 18:35] LABS: SULFASALICYLIC ACID POS (NEG)
[2017-06-23] MEDS: D5W AND 1/2NSS + 20MEQ KCL 1,000 ML IV SCH ×2 (01:01→10:50)
[2017-06-23 04:33] VITALS: BP 103/66; PULSE 66; TEMP 36.8; O2SAT 92
[2017-06-23] MEDS: LEVOTHYROXINE 100 MCG TAB PO SCH (05:41)
[2017-06-23] MEDS: ACETAMINOPHEN 500 MG TAB PO SCH ×3 (05:41→20:49)
[2017-06-23 06:29] LABS: HEMATOCRIT 28.1 % (37-47); MEAN CELL VOLUME 100.4 fL (80-100); MEAN CORPUSCULAR HEMOGLOBIN 34.3 pg (25-34); MEAN CORPUSCULAR HGB CONC 34.2 g/dl (32-36); MEAN PLATELET VOLUME 8.2 fL (7.4-10.4); PLATELET COUNT 203 K/uL (130-400); WHITE BLOOD COUNT 8.49 K/uL (4.8-10.8)
[2017-06-23 07:01] LABS: BUN/CREATININE RATIO 28.4 (10-20); CALCIUM 8.5 mg/dl (8.5-10.1); CREATININE 0.88 mg/dl (0.60-1.20); POTASSIUM 5.3 mmol/L (3.5-5.1)
--- NOTE | 2017-06-23 07:15 | Orthopedic Progress Note ---
Orthopedic Progress Note Date of Service Jun 23, 2017. Subjective Post OP Day: 1 Reports: feeling well, pain controlled w PO medications, Denies: complaints, chest pain, SOB, nausea / vomiting, light headedness, calf pain Additional Notes: sodium 130 K+ 5.3 Hgb 9.6 Objective N/V intact, capillary refill less than 2 sec., dressing C/D/I, A&O x3 Sling in tact, fingers mobile, silverlon in tact. Date Time Temp Pulse Resp B/P (MAP) Pulse Ox O2 Delivery O2 Flow Rate FiO2 06/23/17 04:33 36.8 66 16 103/66 (78) 92 Nasal Cannula 2.0 06/22/17 23:08 36.9 79 16 104/68 (80) 96 Nasal Cannula 2.0 06/22/17 21:00 36.7 101/65 (77) 06/22/17 19:53 36.2 76 17 98/64 (75) 96 Nasal Cannula 2.0 06/22/17 19:50 Nasal Cannula 2.0 06/22/17 19:45 36.8 06/22/17 17:27 36.6 84 18 105/66 (79) 95 Nasal Cannula 2.0 06/22/17 16:45 93 Nasal Cannula 2.0 06/22/17 16:45 Nasal Cannula 2.0 06/22/17 16:31 36.6 78 16 120/82 (95) 95 Nasal Cannula 2.0 06/22/17 15:35 36.4 75 16 124/84 (97) 92 Nasal Cannula 2.0 06/22/17 15:07 36.4 80 16 125/79 (94) 97 Nasal Cannula 2.0 06/22/17 14:34 36.4 66 16 119/78 (92) 94 Nasal Cannula 2.0 06/22/17 13:45 66 16 116/77 93 Oxymask 3 06/22/17 13:35 66 16 127/83 92 Oxymask 3 06/22/17 13:25 36.0 66 16 126/86 92 Oxymask 3 06/22/17 13:15 68 16 121/74 91 Oxymask 5 06/22/17 13:05 74 16 112/70 95 Oxymask 5 06/22/17 12:55 79 16 111/76 96 Oxymask 10 06/22/17 12:47 36.0 78 16 111/84 96 Oxymask 10 06/22/17 08:57 64 16 175/93 (120) 99 Mask 06/22/17 08:41 64 18 167/105 (125) 99 Oxymask 06/22/17 08:27 66 16 166/104 (124) 98 Oxymask 06/22/17 08:25 69 16 180/105 (130) 99 Oxymask Laboratory Results 24 Hours: Test 06/23/17 05:43 Hematocrit 28.1 % Hemoglobin 9.6 g/dL Assessment & Plan Assessment: POD #1, Right Reversed TSA Plan: No PT/ OT for shoulder, advised nursing that patient could loosen sling for elbow motion only, otherwise sling at all times. Patient uses a lift for transfers at baseline, nursing aware and will use lift for bed to chair and bed to toilet transfers. DVT proph- ASA. Disposition- Back to [facility] when stable. Appreciate medical input. Inhouse Planning Pain Management: Morphine, PO Tylenol, Oxy IR DVT Prophylaxis: TEDs, SCDs, ASA Discharge Planning [facility] Pain Management: PO Tylenol, Oxy IR DVT Prophylaxis: ASA
[2017-06-23 07:42] VITALS: BP 143/77; PULSE 67; TEMP 36.4; O2SAT 94
[2017-06-23] MEDS ORDERED: MULTIVITAMIN TAB PO SCH (09:00)
[2017-06-23] MEDS: FLUDROCORTISONE ACETATE 0.1 MG TAB PO SCH (10:48)
[2017-06-23] MEDS: ASPIRIN 325 MG ECTAB PO SCH (10:48)
[2017-06-23] MEDS: FERROUS GLUCONATE 324 MG TAB PO SCH ×3 (10:49→17:44)
[2017-06-23] MEDS: TOCOPHERYL, DL-ALPHA 400 INTER.UNIT CAP PO SCH (10:49)
[2017-06-23] MEDS: CEROVITE ADV FORMULA TAB PO SCH (10:49)
[2017-06-23] MEDS: PANTOprazole SOD 40 MG TAB PO SCH (10:50)
[2017-06-23] MEDS: POLYETHYLENE (MIRALAX) 17 GM PACK PO SCH (10:50)
[2017-06-23 15:18] VITALS: BP 122/75; PULSE 69; TEMP 36.8; O2SAT 97
[2017-06-23] MEDS ORDERED: NURSING VERBAL MED ORDER ONE (18:30)
[2017-06-23] MEDS: SODIUM CHLORIDE 0.9% 1000ML 1,000 ML IV SCH (19:13)
[2017-06-23 23:20] VITALS: BP 128/78; PULSE 68; TEMP 36.9; O2SAT 95
[2017-06-24] MEDS: SODIUM CHLORIDE 0.9% 1000ML 1,000 ML IV SCH (03:50)
[2017-06-24] MEDS: LEVOTHYROXINE 100 MCG TAB PO SCH (05:57)
[2017-06-24] MEDS: ACETAMINOPHEN 500 MG TAB PO SCH (05:58)
[2017-06-24 07:09] VITALS: BP 114/67; PULSE 86; TEMP 36.7; O2SAT 94
--- NOTE | 2017-06-24 07:46 | Orthopedic Progress Note ---
Orthopedic Progress Note Date of Service Jun 24, 2017. Subjective Post OP Day: 2 Reports: feeling well, pain controlled w PO medications, Denies: complaints, chest pain, SOB, nausea / vomiting, light headedness, calf pain Objective N/V intact, capillary refill less than 2 sec., dressing C/D/I SLING IN TACT, FINGERS MOBILE Date Time Temp Pulse Resp B/P (MAP) Pulse Ox O2 Delivery O2 Flow Rate FiO2 06/24/17 07:09 36.7 86 17 114/67 (83) 94 Room Air 06/24/17 01:58 Room Air 06/23/17 23:20 36.9 68 18 128/78 (95) 95 Room Air 06/23/17 20:16 Room Air 06/23/17 15:30 Room Air 06/23/17 15:18 36.8 69 18 122/75 (91) 97 Room Air 06/23/17 08:15 Room Air Laboratory Results 24 Hours: Test 06/24/17 07:35 Assessment & Plan Assessment: POD #2, Right Reversed TSA Plan: No PT/ OT for shoulder, advised nursing that patient could loosen sling for elbow motion only, otherwise sling at all times. Patient uses a lift for transfers at baseline, nursing aware and will use lift for bed to chair and bed to toilet transfers. DVT proph- ASA. Disposition- Back to [facility] TODAY, PER NURSING PATIENT IS AT BASELINE WITH TRANSFERS USING LIFT AND NEEDS NO PT. Appreciate medical input. Inhouse Planning Pain Management: Morphine, PO Tylenol, Oxy IR DVT Prophylaxis: TEDs, SCDs, ASA [facility]charge Planning [facility] Pain Management: PO Tylenol, Oxy IR DVT Prophylaxis: ASA
[2017-06-24] MEDS ORDERED: ASPI325T39 PO (07:50)
[2017-06-24] MEDS ORDERED: FRRG PO (07:50)
[2017-06-24] MEDS ORDERED: CLC100X PO (07:50)
[2017-06-24] MEDS ORDERED: MULTTAB63 PO (07:50)
[2017-06-24] MEDS ORDERED: LEVO100T7 PO (07:50)
[2017-06-24] MEDS ORDERED: FLUD0.1T10 PO (07:50)
[2017-06-24] MEDS ORDERED: VITA1TAB4 PO (07:50)
[2017-06-24] MEDS ORDERED: POLY335019 PO (07:50)
[2017-06-24] MEDS ORDERED: RXC5 PO (07:50)
[2017-06-24] MEDS ORDERED: ACET-24 PO (07:50)
--- NOTE | 2017-06-24 07:56 | Discharge Instructions ---
Discharge Instructions Date of Service Jun 24, 2017. Admission Reason for Admission: Rotator Cuff Arthropathy, Shoulder Dislocation Discharge Discharge Diagnosis / Problem: RIGHT REVERSED TSA Discharge Goals Goal(s): Improve function Activity Recommendations Activity Level: Assistance Required . Additional Information Patient informed of condition: Yes Advance Directives: Yes DNR: No Level of Care: Skilled Communicable Disease: No Prognosis: Stable Gonzalez Catheter: No Instructions / Follow-Up Instructions / Follow-Up LEAVE SILVERLON DRESSING ON FOR 1 WK POST OP THEN REMOVE AND DISCARD, REPLACE WITH DAILY STERILE DRESSING CHANGES UNTIL FOLLOW UP W SURGEON. NO FORMAL PT NEEDED FOR SHOULDER, SLING AT ALL TIMES, NURSE OR THERAPIST MAY LOOSEN SLING 2-3 TIMES DAILY FOR ELBOW ROM ONLY. MAY SHOWER, DO NOT SUBMERGE INCISION UNDERWATER. FOLLOW UP W DR. MARIE 12-14 DAYS POST OP, CALL [phone] TO CONFIRM APPT. 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 Who to Call and When: Medical Emergencies: If at any time you feel your situation is an emergency, please call 911 immediately. . Non-Emergent Contact Non-Emergency issues call your: Primary Care Provider . . "Provider Documentation" section prepared by Galdino David. . Core Measure Problem Core Measures: VTE VTE Core Measures Date of VTE Diagnosis: Jun 24, 2017 Time of VTE Diagnosis: 07:55 Reason no anticoag overlap I/P: Treatment provided - N/A Reason no anticoag overlap @DC: Treatment provided - N/A [place] Drug Monitoring Program Search Results: patient reviewed within database, no issues identified
[2017-06-24 08:03] VITALS: BP 114/67; PULSE 86; TEMP 36.7; O2SAT 94
[2017-06-24 08:31] LABS: BUN/CREATININE RATIO 28.6 (10-20); CALCIUM 8.1 mg/dl (8.5-10.1); CREATININE 0.66 mg/dl (0.60-1.20); POTASSIUM 4.2 mmol/L (3.5-5.1)
[2017-06-24 08:58] LABS: HEMATOCRIT 27.2 % (37-47); MEAN CELL VOLUME 95.1 fL (80-100); MEAN CORPUSCULAR HEMOGLOBIN 32.5 pg (25-34); MEAN CORPUSCULAR HGB CONC 34.2 g/dl (32-36); MEAN PLATELET VOLUME 8.1 fL (7.4-10.4); PLATELET COUNT 194 K/uL (130-400); RED BLOOD COUNT 2.86 M/uL (4.2-5.4); WHITE BLOOD COUNT 7.87 K/uL (4.8-10.8)
[2017-06-24] MEDS: POLYETHYLENE (MIRALAX) 17 GM PACK PO SCH (09:00)
[2017-06-24] MEDS: PANTOprazole SOD 40 MG TAB PO SCH (09:07)
[2017-06-24] MEDS: CEROVITE ADV FORMULA TAB PO SCH (09:07)
[2017-06-24] MEDS: ASPIRIN 325 MG ECTAB PO SCH (09:07)
[2017-06-24] MEDS: TOCOPHERYL, DL-ALPHA 400 INTER.UNIT CAP PO SCH (09:08)
[2017-06-24] MEDS: FERROUS GLUCONATE 324 MG TAB PO SCH (09:08)
[2017-06-24] MEDS: FLUDROCORTISONE ACETATE 0.1 MG TAB PO SCH (09:08)
--- NOTE | 2017-06-26 14:02 | Discharge Summary ---
Orthopedic Discharge Summary Admission Date/Reason Jun 22, 2017 at 06:30 Rotator Cuff Arthropathy, Shoulder Dislocation. Discharge Date/Disposition Jun 24, 2017 custodial facility Diagnosis Principal Diagnosis: S/P Right Reverse TSA Medication Reconciliation As per discharge instructions Admission Physical Exam As per Admitting History & Physical. Hospital Course POD #1 patient was feeling well. Pain was controlled with PO medications. Her discharge disposition was going to be back to [facility] when she was medically stable and able to transfer. POD #2 Patient was feeling well. Pain was controlled with PO medications. She learned transfers. She was instructed she is to not start any PT for 6 weeks after her surgery. She will follow up in the office in 10-14 days. Discharge Instructions Please refer to the electronic Patient Visit Report (Discharge Instructions) for additional information.
== END 2017-06-24 11:00 | DRG 483 ==
LOC: C.ACU 06:16 → C.3E 06:30 → ENRESERV 13:11
PROVIDERS: ADMIT Orthopaedic Surgery; ATTEND Orthopaedic Surgery
PROC: 0RRJ00Z Replacement of Right Shoulder Joint with Reverse Ball and Socket Synthetic Substitute, Open Approach (ICD-10-PCS; principal; 2017-06-22 08:30)
DX: M24.411 Recurrent dislocation, right shoulder (principal); M19.011 Primary osteoarthritis, right shoulder; E03.9 Hypothyroidism, unspecified; Z79.899 Other long term (current) drug therapy; Z79.82 Long term (current) use of aspirin; Z96.653 Presence of artificial knee joint, bilateral; E87.1 Hypo-osmolality and hyponatremia

== ENCOUNTER → 2017-11-30 | Outpatient (CLI) | payer OTHER ==
[~2017-11-30] MED LIST changes: +ACET-24 PO; -ACETAMINOPHEN 500 MG TAB PO SCH; -CEFAZOLIN 2000 MG/60 ML D5W 60 ML IV SCH; -CeleBREX 200 MG CAP PO SCH; -DEXAMETHASONE 4 MG TAB PO SCH; -FAMOTIDINE 20 MG TAB PO SCH; +FLUD0.1T10 PO; +FRRG PO; -GABAPENTIN 300 MG CAP PO SCH; -LACTATED RINGER'S 1000ML 1,000 ML IV SCH; -LACTATED RINGER'S 1000ML IV SCH; -ROPIVACAINE 5MG/ML 30 ML 150 MG, BUPIVACAINE/EPINEPHR 0.5% MPF 30 ML, KETOROLAC TROMETH... INFIL SCH; +RXC5 PO; -TYLER650 PO
[2017-11-30 08:04] LABS: BASO % 0.6 %; BASO ABS # 0.04 K/uL (0-0.2); EOS % 9.2 %; EOS ABS # 0.59 K/uL (0-0.5); HEMATOCRIT 34.9 % (37-47); HEMOGLOBIN 12.3 g/dL (12.0-16.0); IG# 0.02 K/uL (0.00-0.02); LYMPH ABS # 1.41 K/uL (1.2-3.4); MEAN CELL VOLUME 94.8 fL (80-100); MEAN CORPUSCULAR HEMOGLOBIN 33.4 pg (25-34); MEAN CORPUSCULAR HGB CONC 35.2 g/dl (32-36); MEAN PLATELET VOLUME 9.1 fL (7.4-10.4); MONO % 8.3 %; MONO ABS # 0.53 K/uL (0.11-0.59); NEUT % 59.6 %; NEUT ABS # 3.82 K/uL (1.4-6.5); PLATELET COUNT 210 K/uL (130-400); RED CELL DISTRIBUTION WIDTH CV 14.4 % (11.5-14.5); RED CELL DISTRIBUTION WIDTH SD 49.3 fL (36.4-46.3); WHITE BLOOD COUNT 6.41 K/uL (4.8-10.8)
[2017-11-30 10:01] LABS: BLOOD UREA NITROGEN 16 mg/dl (7-18); CALCIUM 8.5 mg/dl (8.5-10.1); CARBON DIOXIDE 25 mmol/L (21-32); CREATININE 0.65 mg/dl (0.60-1.20); GLUCOSE 77 mg/dl (70-99); POTASSIUM 4.2 mmol/L (3.5-5.1); SODIUM 132 mmol/L (136-145)
== END ==
LOC: C.LABCC 07:44
PROVIDERS: ATTEND Internal Medicine
DX: E03.9 Hypothyroidism, unspecified (principal); I25.10 Atherosclerotic heart disease of native coronary artery without angina pectoris

== ENCOUNTER → 2017-12-14 | Outpatient (CLI) | payer OTHER ==
[2017-12-14 08:41] LABS: BLOOD UREA NITROGEN 19 mg/dl (7-18); CREATININE 0.68 mg/dl (0.60-1.20); GLUCOSE 79 mg/dl (70-99)
[2017-12-14 08:42] LABS: CALCIUM 8.9 mg/dl (8.5-10.1); CARBON DIOXIDE 26 mmol/L (21-32); POTASSIUM 4.4 mmol/L (3.5-5.1); SODIUM 134 mmol/L (136-145)
== END | disposition home or self-care (01) ==
LOC: C.LABCC 07:45
PROVIDERS: ATTEND Internal Medicine
DX: E87.1 Hypo-osmolality and hyponatremia (principal)